=== PATIENT | male | born 1950 | race African-American/Black ===

== ENCOUNTER → 2016-04-05 | Day surgery (SDC) | payer MEDICARE ==
--- NOTE | 2016-04-03 05:43 | HP ---
PREOPERATIVE HISTORY AND PHYSICAL: DATE OF SURGERY: 04/06/16 DATE OF OFFICE VISIT: 03/30/16 ATTENDING SURGEON: Maine Casillas MD PROCEDURE: Right shoulder arthroscopic rotator cuff repair versus right rotator cuff repair, open arthroscopic debridement, and possible open subscapularis repair. CHIEF COMPLAINT: Right shoulder pain. HISTORY OF PRESENT ILLNESS: Mr. Harrison is a 66-year-old male who presented to the clinic for ongoing shoulder pain due to a rotator cuff tear. The patient has a history of prior right shoulder rotator cuff repair 15 to 20 years ago; however, has reinjured his shoulder and continues to have ongoing pain that has failed conservative measures. Therefore, he has agreed to undergo a right shoulder arthroscopic rotator cuff repair with Dr. Casillas on 03/11. PAST MEDICAL HISTORY: 1. Obstructive sleep apnea. 2. History of heart attack. 3. Diabetes mellitus, type 2. 4. Hypertension. 5. Obesity. 6. High cholesterol. PAST SURGICAL HISTORY: 1. Right knee replacement. 2. Right Achilles tendon repair. 3. Left foot transmetatarsal amputation. 4. Cardiac stent placement. 5. Bilateral rotator cuff repair. MEDICATIONS: 1. Carvedilol 12.5 mg 1 by mouth twice a day. 2. Ventolin inhaler. 3. Budesonide inhaler. 4. Furosemide 40 mg 1 by mouth every day as needed for leg swelling. 5. Oxycodone/acetaminophen 5/325 mg 1 by mouth every 6 hours as needed for pain. 6. Blood glucose test strips 3 times a day as directed. 7. Losartan potassium 25 mg 1 by mouth daily. 8. Hydralazine HCl 25 mg 1 by mouth 3 times a day. 9. Neurontin 400 mg 1 tab 3 times a day to 4 times a day daily. 10. Aspirin 81 mg 1 by mouth daily. 11. Simvastatin 20 mg 1 by mouth daily. 12. Lantus 100 units/mL, 500 units to 100 units as directed at bedtime beneath the skin. 13. Zolpidem tartrate 10 mg 1 tab by mouth every night as needed. 14. Omeprazole 20 mg daily. 15. Naproxen 500 mg. 16. Humalog KwikPen 100 units/mL. ALLERGIES: EFFEXOR. FAMILY HISTORY: Sister has hypertension. SOCIAL HISTORY: The patient is a former smoker, quit in 2011. He lives alone. He reports he drinks 8 cans of beer a week. He denies illegal drug use. REVIEW OF SYSTEMS: A 14-point review of systems was reviewed with the patient. Positive for edema, hypertension, numbness and tingling in the feet and the right arm, diabetes type 2, and history of DVT after knee replacement. Otherwise, negative or nonpertinent. PHYSICAL EXAMINATION GENERAL: A well-developed, overweight 66-year-old male, in no acute distress. VITAL SIGNS: Height 68, weight 320, pulse 60, respiratory rate 16, and BMI 48.7. HEENT: Normocephalic, atraumatic. PERRLA. NECK: Supple. Throat clear. PULMONARY: Lungs clear to auscultation bilaterally. No wheezing, rhonchi, or rales. CARDIO: Regular rate and rhythm, S1, S2. No murmurs, gallops, or rubs. No edema. ABDOMEN: Positive bowel sounds, soft, and nontender. NEURO: Alert and oriented x3. Cranial nerves grossly intact. Sensation is intact to light touch distally. MUSCULOSKELETAL: Right shoulder; skin is intact, no obvious deformity. Forward flexion to 80 degrees, adduction to 110 degrees, external rotation to 65 degrees, internal rotation to the lateral hip, +4 to 5 weakness to rotator cuff testing, and +2 radial pulse. Sensation intact to light touch distally. DIAGNOSTIC STUDIES: MRI revealed full-thickness tear of the supraspinatus and infraspinatus tendons of the right shoulder. IMPRESSION: Right shoulder full-thickness tear of the supraspinatus and infraspinatus tendons. PLAN: The patient is scheduled to undergo a right shoulder arthroscopic rotator cuff repair versus, arthroscopic debridement, possible open subscapularis repair with Dr. Casillas on 04/06/16. He will return to the office in 10 to 14 days postop for followup and suture removal. The patient's preop labs showed an elevated A1c around 9. Therefore, it was explained to the patient that his elevated A1c increases the risk of infection and complication. The patient did not want to delay surgery. He was told to keep his sugars under better control until surgery occurs. The patient was given a prescription for Percocet that was sent to his pharmacy for postoperative pain management. He was instructed to take a stool softener for prevention of constipation. He will be on Keflex for 4 to 5 days postoperatively and due to his history of DVT, Lovenox will be used for 10 days for DVT prophylaxis. The patient has been cleared by his general assembler installer and his primary care physician for surgery. HEATHER ANG [id number]/[facility] #: [id number] DUANE
--- NOTE | 2016-04-03 05:50 | HP ---
DICTATION ENDS ABRUPTLY FULLY REDICTATED PREOPERATIVE HISTORY AND PHYSICAL: DATE OF ADMISSION/SURGERY: 04/06/16 DATE OF OFFICE VISIT: 03/30/16 ATTENDING SURGEON: Dr. Casillas. PROCEDURE: Right shoulder arthroscopic rotator cuff repair versus rotator cuff open, arthroscopic debridement, possible open subscapularis repair. CHIEF COMPLAINT: Right shoulder pain. HISTORY OF PRESENT ILLNESS: Mr. Harrison is a 66-year-old male who presents to the clinic for followup of ongoing right shoulder pain. The patient has a history of a prior rotator cuff repair on the right shoulder 15-20 years ago. The patient has reinjured his shoulder and has retorn his rotator cuff, therefore has continued pain. The patient has failed conservative measures and therefore has agreed to undergo a right shoulder arthroscopic rotator cuff repair versus rotator cuff repair open, laparoscopic debridement and possible open subscapularis repair with Dr. Casillas on 04/06/16. PAST MEDICAL HISTORY: 1. Obstructive sleep apnea. 2. Hypertension. 3. Obesity. 4. High cholesterol. 5. Diabetes mellitus. 6. History of heart attack. PAST SURGICAL HISTORY: 1. Right knee replacement. 2. Right Achilles tendon repair. 3. Cardiac stent placement. 4. Left foot transmetatarsal amputation. 5. Bilateral rotator cuff repairs. MEDICATIONS: Please list: 1. Carvedilol 12.5 mg one by mouth twice a day. 2. Furosemide 40 mg one by mouth every day as needed for leg swelling. 3. Oxycodone/acetaminophen 5/325 to take one by mouth. (DICTATION ENDS HERE) HEATHER ANG [id number]/[facility] #: [id number] DUANE
[~2016-04-05] MED LIST: Atracurium* 10 MG/ML 10 ML VIAL ONE; Buffered Lidocaine 1% SYR 3ML* 3 ML/SYR SYRINGE INTRADERM ONE; Buffered Lidocaine 1% SYR 3ML* 3 ML/SYR SYRINGE ONE; Bupivacaine 0.25% SDV* 30 ML ONE; Famotidine IV* 10 MG/ML 2 ML (20 mg) IV ONE; Famotidine IV* 10 MG/ML 2 ML (20 mg) ONE; Insulin REGULAR(*) 1 UNITS UNIT ONE; Insulin REGULAR(*) 1 UNITS UNIT SUBCUT SCH; KETAMINE HCL* 50 MG/ML 10 ML VIAL ONE; Labetalol IV* 5 MG/ML 20 ML VIAL ONE; Lidocaine 2% MPF* 2 ML VIAL ONE; Lidocaine 2% PF* 10 ML AMP ONE; Metoprolol Tartrate IV* 1 MG/ML 5 ML VIAL ONE; Midazolam* 1 MG/ML 5 ML VIAL (5 MG) ONE; Morphine INJ* 10 MG/ML 1 ML CARPUJECT ONE; Morphine INJ* 2 MG/ML 1 ML CARPUJECT IV PRN; Ondansetron INJ* 2 MG/ML VIAL ONE; PROCHLORPERAZINE INJ 5 MG/ML 2 ML VIAL IV PRN; PROCHLORPERAZINE INJ 5 MG/ML 2 ML VIAL ONE; Propofol* 10 MG/ML 20 ML BTL IV PUSH ONE; ceFAZolin 1 GM in Dextrose (*) 1 GM/50 ML BAG IVPB ONE; ceFAZolin 2 GM PREMIX (*) 2 GM/50 ML BAG IVPB ONE; fentaNYL* 50 MCG/ML 2 ML VIAL (100 MCG VIAL) IV PRN; fentaNYL* 50 MCG/ML 5 ML VIAL (250 MCG VIAL) ONE; oxyCODONE/Acetamin 5/325 MG* TAB PO PRN
[2016-04-05 13:23] VITALS: BP 148/89
--- NOTE | 2016-04-05 22:31 | OP ---
DATE OF OPERATION: 04/05/16 [facility] DATE OF : 50 SURGEON: Maine Casillas MD WARPING MILL OPERATOR: HEATHER Holland. An billing and accounting staff assistant was needed for the entirety of the case to help with positioning, retraction, placement of anchors and throughout all portions of the case. ANESTHESIOLOGIST: Dr. Tinsley. ANESTHESIA: General with interscalene block. PRE-OP DIAGNOSIS: Right shoulder full thickness rotator cuff tear status post previous repair as well as biceps tendonitis. POST-OP DIAGNOSES: 1. Full thickness massive rotator cuff tear failed, status post previous repair. 2. Subacromial impingement. 3. Biceps tendonitis. OPERATIVE PROCEDURE: Right shoulder arthroscopy with: 1. Extensive glenohumeral debridement including biceps tenotomy. 2. Revision subacromial decompression with acromioplasty. 3. Double row rotator cuff repair for massive rotator cuff status post failed repair. IMPLANTS USED: Three Healicoils and 1 Multifix anchor by Rios and NephBalzo. COMPLICATIONS: None. ESTIMATED BLOOD LOSS: Minimal. INDICATIONS: Mariah Harrison is a 66-year-old male who has had persistent right shoulder pain. He has a previous history of a repair that was done by either Dr. Bruno or Dr. Wells that was done open. He says that it did okay for a while but then he started to develop a lot of pain in the last year, so it has got much much worse. He failed conservative management. He has an extensive medical history, underwent preoperative risk assessment by his primary care provider. He did have a hemoglobin A1C in December that was over 8. We did have an extensive discussion about him needing time control of his diabetes as this can affect the healing of his surgery. He also has a previous history of having a heart attack after his total knee replacement. We will watch him very closely after surgery. He understands the risks and benefits of surgery which include but are not limited to bleeding, infection, damage to nerves, vessels or surrounding structures, wound nonhealing, persistent pain, need for further surgery, failure of the repair, risks of anesthesia, risk of stroke, heart attack, , risks of DVT, stiffness, persistent pain and complete relief of symptoms. He has elected to proceed. DESCRIPTION OF PROCEDURE: The patient was greeted in the preoperative area by the attending surgeon. Correct extremity was marked. The Anesthesia team then did a block in the preoperative anesthesia area, which he tolerated without difficulty. He was then brought directly to the operating room and left on the stretcher. He then underwent endotracheal intubation, which he tolerated without difficulty. The patient was then transferred to the operative table after he was asleep and he was placed in the left lateral decubitus position and an axillary roll was placed. All bony prominences were padded. He was supported with a peg board. The right arm was draped unsterile from the traction frame with 15 pounds of traction. The right arm was prepped and draped in the usual sterile fashion with chlorhexidine soap and then a final prep with ChloraPrep. After appropriate surgical pause indicating site, side, procedure, administration of antibiotics, the standard posterolateral portal was made sharply with the 11 blade. The scope was introduced into the joint. The joint was examined and there were grade 0 to 1 changes of the glenoid and the humeral head, the inferior recess was intact. There was a full thickness tear of the supraspinatus tendon extending into the infraspinatus tendon. Biceps was subluxed anteriorly. The superior, anterior and posterior labrum had unstable fraying. The anterior portal was then made in an outside-in fashion. The shaver was brought in to debride the unstable flaps of the superior, posterior and anterior labrum. The biceps was taken through range of motion and then tenotomized. There was abundant scar and soft tissue anteriorly which was then carefully debrided back using the shaver and the electrocautery device when then exposed the subscapularis which was found to be intact. Once the debridement was complete, attention was directed to the subacromial space. The scope was repositioned in the subacromial space. The lateral portal was made in an outside-in fashion. The abundant bursa was carefully removed using a shaver and an electrocautery device. A previous subacromial decompression had been done but there was a large downward sloping spur anterolaterally that was present. This was fully exposed using electrocautery device. The CA ligament was peeled back. The undersurface of the acromion was skeletonized. A 4-0 bipin was then used to complete the acromioplasty which was revised. All loose debris was removed from the joint and then attention was directed to the rotator cuff. The rotator cuff had an irregular full thickness tear from the previous anchor site which was visible but it also extended into the anterior portion of the infraspinatus tendon. The tendon was debrided back to a stable layer. It was then carefully mobilized. The greater tuberosity was fully exposed and this was then prepared in the usual fashion with a rasp, as well as the bipin to incorporate to help stimulate healing as well as the shaver and electrocautery device. Once this was done, 3 anchors were placed in the medial row. These were Healicoil anchors. They were passed through the tissues in a horizontal mattress configuration. These were then tied down and four strands were chosen and then placed into a lateral footprint anchor. This allowed for compression of the cuff as best as possible as well as the double layer fixation. The cuff was visualized and found to be intact and restored to the footprint. All loose debris and fluid were removed from the joint. Final images were obtained. The portals were closed with 3-0 nylon. Sterile dressings were applied. A Cryo/Cuff as well as an UltraSling were applied. He was then awoken from anesthesia and transferred to PACU in stable condition. POSTOPERATIVE PLAN: His glucoses will be monitored closely. He will be nonweightbearing. He will be in a sling for 6 weeks. We will allow to come out with elbow, hand, wrist range of motion as well as pendulum exercises. He will be discharged on pain medications. He will be on lovenox for prior history of DVT for at least 2 weeks. CC: BREE, [place] [id number]/[facility] #: [id number] DUANE
== END | disposition home or self-care (01) ==
LOC: OR 05:37
PROVIDERS: ATTEND Orthopaedic Surgery
DX: M75.121 Complete rotator cuff tear or rupture of right shoulder, not specified as traumatic (principal); M75.41 Impingement syndrome of right shoulder; M75.21 Bicipital tendinitis, right shoulder; G47.33 Obstructive sleep apnea (adult) (pediatric); I25.2 Old myocardial infarction; E11.8 Type 2 diabetes mellitus with unspecified complications; Z79.4 Long term (current) use of insulin; I10 Essential (primary) hypertension
CPT/HCPCS: 36415; 84484; 93005; C1713; J0690; J0780; J2001; J2250; J2270; J2405; J2704; J3010; J3490

== ENCOUNTER 2016-05-10 22:34 | Emergency (ER) | payer MEDICARE ==
[2016-05-10] MEDS ORDERED: Aspirin Low Dose CHEW TAB* 81 MG PO ONE (22:51)
[2016-05-10 23:42] LABS: Hematocrit 35 % (42-52); Mean Corpuscular HGB Conc 31 g/dl (31-36); Mean Corpuscular Hemoglobin 24 pg (27-31); Mean Corpuscular Volume 76 fL (80-94); Mean Platelet Volume 9 um3 (7.4-10.4); Red Blood Count 4.61 10^6/ul (4.0-5.4); Red Cell Distribution Width 14 % (10.5-15); White Blood Count 12.1 10^3/ul (3.5-10.8)
[2016-05-10 23:48] LABS: Albumin 3.6 g/dL (3.2-5.2); Calcium 8.7 mg/dL (8.6-10.3); EGFR African American 60.2 (>60); EGFR Non-African American 46.8 (>60); Globulin 3.3 g/dL (2-4); Magnesium 1.7 mg/dL (1.9-2.7); Potassium 3.6 mmol/L (3.5-5.0); Total Bilirubin 0.3 mg/dL (0.2-1.0); Total Protein 6.9 g/dL (6.4-8.9)
[2016-05-10 23:50] LABS: Troponin I 0.01 ng/mL (<0.04)
--- NOTE | 2016-05-10 23:53 | ED ---
Edmund Mccain Billy, scribed for Angel Armas MD on 05/10/16 at 2353 . HPI Chest Pain - HPI Summary HPI Summary: Patient is a 66 year-old male coming to [facility] presenting with constant left anterior chest pain since yesterday. He also reports associated SOB and wheezing. Symptoms are worse with movement and deep breaths. Patient had right shoulder surgery with Dr. Casillas 3 weeks ago. Former smoker, quit 4 years ago. - History of Current Complaint Chief Complaint: EDChestPainROMI Time Seen by Provider: 05/10/16 22:48 Hx Obtained From: Patient Onset/Duration: Started Hours Ago, Still Present Timing: Constant Initial Severity: Moderate Current Severity: Moderate Chest Pain Location: Left Anterior Chest Pain Radiates: No Aggravating Factor(s): Movement, Deep Breaths Alleviating Factor(s): Nothing Associated Signs and Symptoms: Positive: Shortness of Breath, Other: - wheezing - Allergy/Home Medications Allergies/Adverse Reactions: Allergies Allergy/AdvReac Type Severity Reaction Status Date / Time Venlafaxine [From Effexor] Allergy ALEXANDRU, Verified 04/05/16 06:27 SWETTING PMH/Surg Hx/FS Hx/Imm Hx Endocrine/Hematology History: Reports: Hx Anticoagulant Therapy - coumadin, Hx Diabetes - type 2, ON INULINE Denies: Hx Thyroid Disease Cardiovascular History: Reports: Hx Angina, Hx Coronary Artery Disease - STENT, Hx Hypercholesterolemia, Hx Hypertension - ON MEDS, Hx Myocardial Infarction, Other Cardiovascular Problems/Disorders - CAD/OBESITY/IDDM II Denies: Hx Pacemaker/ICD, Hx Valvular Heart Disease Respiratory History: Reports: Hx Sleep Apnea - USES AMBIEM NIGHTLY Denies: Hx Asthma, Hx Chronic Obstructive Pulmonary Disease (COPD) GI History: Reports: Hx Gastroesophageal Reflux Disease - ON DAILY MEDS, Other GI Disorders - HISTORY OF PANCREATITIS- GALLBLADDER REMOVED-?2010 History: Reports: Other Problems/Disorders - contrast induce nephropathy Denies: Hx Renal Disease Musculoskeletal History: Reports: Hx Arthritis - BOTH HANDS, SHOULDERS Sensory History: Reports: Hx Contacts or Glasses - GLASSES Denies: Hx Hearing Aid Opthamlomology History: Reports: Hx Contacts or Glasses - GLASSES Neurological History: Reports: Hx Nerve Disease - neuropathy Denies: Hx Dementia, Hx Seizures Psychiatric History: Denies: Hx Panic Disorder, Hx Suicide Attempt, Hx Substance Abuse - Surgical History Surgery Procedure, Year, and Place: GALL BLADDER 2010 [facility] [place]. CARDIAC STENT PLACEMENT-[facility] [place] 2010. LEFT FOOT PARTIAL AMPUTATION [facility] [place]. RIGHT ACHILLES TENDON REPAIR [facility] [place]. R total knee replacement: 2011 [facility] [place]. PINS IN BOTH LEGS FOR FRACTURES- AGE 11. LEFT AND RIGHT ROTATOR TEAR REPAIRS [facility] Hx Anesthesia Reactions: No - Immunization History Date of Tetanus Vaccine: >10 yrs Date of Influenza Vaccine: Fall 2012 Infectious Disease History: Reports: Hx Hepatitis - HX OF Dx 01/08 Hep C, TOOK FULL COURES OF MEDS, STATES CLEARED Denies: Hx Clostridium Difficile, Hx Human Immunodeficiency Virus (HIV), Hx Shingles, Hx Tuberculosis, Traveled Outside the [place] in Last 30 Days - Family History Known Family History: Negative: Cardiac Disease Family History: No FHx of Malignant Hyperthermia. No FHx of Anesthesia Reaction - Social History Alcohol Use: Weekly Alcohol Amount: 6-8 CANS/BEER WEEK Substance Use Type: Reports: None Hx Tobacco Use: Yes Smoking Status (MU): Former Smoker Type: Cigarettes Amount Used/How Often: 1/2 PPD 40 YRS Have You Smoked in the Last Year: No Review of Systems Positive: Chest Pain Positive: Shortness Of Breath, Other - wheezing All Other Systems Reviewed And Are Negative: Yes Physical Exam Triage Information Reviewed: Yes Vital Signs On Initial Exam: Initial Vitals Resp BP 16 180/76 05/10/16 22:51 05/10/16 22:51 Vital Signs Reviewed: Yes Appearance: Positive: Pain Distress - mild discomfort, Obese Skin: Positive: Warm Head/Face: Positive: Normal Head/Face Inspection Eyes: Positive: GADIEL ENT: Positive: Hearing grossly normal Neck: Positive: Supple Respiratory/Lung Sounds: Positive: Clear to Auscultation, Breath Sounds Present Cardiovascular: Positive: RRR Abdomen Description: Positive: Nontender, Soft Bowel Sounds: Positive: Present Musculoskeletal: Positive: Strength/ROM Intact Neurological: Positive: Normal Gait - [place] Coma Scale Coma Scale Total: 15 Diagnostics - Vital Signs Vital Signs Pulse Resp BP Pulse Ox 05/10/16 23:00 81 12 165/71 95 05/10/16 22:51 16 180/76 - Laboratory Lab Results: Lab Results 05/10/16 05/10/16 05/10/16 Range/Units 23:25 23:25 23:25 WBC 12.1 H (3.5-10.8) 10^3/ul RBC 4.61 (4.0-5.4) 10^6/ul Hgb 11.0 L (14.0-18.0) g/dl Hct 35 L (42-52) % MCV 76 L (80-94) fL MCH 24 L (27-31) pg MCHC 31 (31-36) g/dl RDW 14 (10.5-15) % Plt Count 192 (150-450) 10^3/ul MPV 9 (7.4-10.4) um3 Neut % (Auto) 65.7 (38-83) % Lymph % (Auto) 20.5 L (25-47) % [place] % (Auto) 8.4 (1-9) % Eos % (Auto) 3.5 (0-6) % Baso % (Auto) 1.9 (0-2) % Absolute Neuts (auto) 8.0 H (1.5-7.7) 10^3/ul Absolute Lymphs (auto) 2.5 (1.0-4.8) 10^3/ul Absolute Monos (auto) 1.0 H (0-0.8) 10^3/ul Absolute Eos (auto) 0.4 (0-0.6) 10^3/ul Absolute Basos (auto) 0.2 (0-0.2) 10^3/ul Absolute Nucleated RBC 0.01 10^3/ul Nucleated RBC % 0.1 INR (Anticoag Therapy) 0.99 (0.89-1.11) D-Dimer, Quantitative 514 H (Less Than 230) ng/mL Sodium 136 (133-145) mmol/L Potassium 3.6 (3.5-5.0) mmol/L Chloride 103 (101-111) mmol/L Carbon Dioxide 26 (22-32) mmol/L Anion Gap 7 (2-11) mmol/L BUN 27 H (6-24) mg/dL Creatinine 1.50 H (0.67-1.17) mg/dL Est GFR ( Amer) 60.2 (>60) Est GFR (Non-Af Amer) 46.8 (>60) BUN/Creatinine Ratio 18.0 (8-20) Glucose 76 (70-100) mg/dL Lactic Acid (0.5-2.0) mmol/L Calcium 8.7 (8.6-10.3) mg/dL Magnesium 1.7 L (1.9-2.7) mg/dL Total Bilirubin 0.30 (0.2-1.0) mg/dL AST 17 (13-39) U/L ALT 8 (7-52) U/L Alkaline Phosphatase 61 (34-104) U/L Troponin I 0.01 (<0.04) ng/mL Total Protein 6.9 (6.4-8.9) g/dL Albumin 3.6 (3.2-5.2) g/dL Globulin 3.3 (2-4) g/dL Albumin/Globulin Ratio 1.1 (1-3) 05/10/16 Range/Units 23:25 WBC (3.5-10.8) 10^3/ul RBC (4.0-5.4) 10^6/ul Hgb (14.0-18.0) g/dl Hct (42-52) % MCV (80-94) fL MCH (27-31) pg MCHC (31-36) g/dl RDW (10.5-15) % Plt Count (150-450) 10^3/ul MPV (7.4-10.4) um3 Neut % (Auto) (38-83) % Lymph % (Auto) (25-47) % [place] % (Auto) (1-9) % Eos % (Auto) (0-6) % Baso % (Auto) (0-2) % Absolute Neuts (auto) (1.5-7.7) 10^3/ul Absolute Lymphs (auto) (1.0-4.8) 10^3/ul Absolute Monos (auto) (0-0.8) 10^3/ul Absolute Eos (auto) (0-0.6) 10^3/ul Absolute Basos (auto) (0-0.2) 10^3/ul Absolute Nucleated RBC 10^3/ul Nucleated RBC % INR (Anticoag Therapy) (0.89-1.11) D-Dimer, Quantitative (Less Than 230) ng/mL Sodium (133-145) mmol/L Potassium (3.5-5.0) mmol/L Chloride (101-111) mmol/L Carbon Dioxide (22-32) mmol/L Anion Gap (2-11) mmol/L BUN (6-24) mg/dL Creatinine (0.67-1.17) mg/dL Est GFR ( Amer) (>60) Est GFR (Non-Af Amer) (>60) BUN/Creatinine Ratio (8-20) Glucose (70-100) mg/dL Lactic Acid 0.6 (0.5-2.0) mmol/L Calcium (8.6-10.3) mg/dL Magnesium (1.9-2.7) mg/dL Total Bilirubin (0.2-1.0) mg/dL AST (13-39) U/L ALT (7-52) U/L Alkaline Phosphatase (34-104) U/L Troponin I (<0.04) ng/mL Total Protein (6.4-8.9) g/dL Albumin (3.2-5.2) g/dL Globulin (2-4) g/dL Albumin/Globulin Ratio (1-3) Result Diagrams: 05/10/16 23:25 05/10/16 23:25 Lab Statement: Any lab studies that have been ordered have been reviewed, and results considered in the medical decision making process. - Radiology CXR Xray Interpretation: No Acute Changes Radiology Interpretation Completed By: ED Physician - CT CTA chest CT Interpretation Completed By: Radiologist - No evidence of a PE, thoracic aortic aneurysm, dissection, or pneumonic process. Mild bilateral dependent subsegmental atelectasis. Mild cardiomegaly. Coronary artery calcifications. No pneumothorax or pleural effusion. Status post cholecystectomy. Small right renal cyst. Thoracic spondylosis. - EKG 223 EKG Interpretation: NSR 83 bpm, no ST elevation Re-Evaluation - Re-Evaluation First Eval Change: Improved Chest Pain Course/Dx - Diagnoses Provider Diagnoses: Chest pain - Critical Care Time Critical Care Time: 30-74 min Discharge - Discharge Plan Condition: Stable Disposition: HOME Prescriptions: Naproxen TAB* [Naprosyn TAB*] 500 mg PO BID #20 tab Patient Education Materials: Chest Pain (ED) Referrals: Fred Hoffman MD [Primary Care Provider] - The documentation as recorded by the Edmund castano Billy accurately reflects the service I personally performed and the decisions made by , Angel Armas MD.
[2016-05-11] MEDS ORDERED: Iodixanol* (CONTRAST) 320 MG/ML 100 ML SDV IV ONE (00:27)
[2016-05-11 01:46] VITALS: BP 179/85
--- NOTE | 2016-05-11 07:41 | RAD ---
INDICATION: Chest pain and shortness of breath. COMPARISON: Correlation is made with prior study from June 24, 2015. TECHNIQUE: Dual-energy PA and lateral views of the chest were obtained. FINDINGS: The heart is within normal limits in size. Mediastinal and hilar contours appear within normal limits. The lungs are clear. No pleural effusion is present. IMPRESSION: NO EVIDENCE FOR ACTIVE CARDIOPULMONARY DISEASE.
--- NOTE | 2016-05-11 07:53 | RAD ---
INDICATION: Shortness of breath, elevated d-dimer. COMPARISON: Comparison is made with a prior chest x-ray study from May 10, [address] angiogram of the chest from January 10, 2014. TECHNIQUE: A CT angiogram of the chest was performed with intravenous following intravenous injection of 95 ml of Visipaque 320 nonionic contrast. Contiguous axial sections were obtained from the lung apices through the lung bases. Images were reconstructed in the coronal and sagittal planes. FINDINGS: There is relatively homogeneous opacification of the pulmonary arteries. No intraluminal filling defect or pulmonary embolism is seen. The heart appears to be within normal limits in size. No pericardial effusion is present. Note is made of coronary artery calcifications. The descending thoracic aorta is mildly ectatic with mild calcific and soft plaque present. There is no evidence for aortic dissection. No significant enlarged mediastinal or hilar lymph nodes are seen. There is mild dependent bilateral lower lobe subsegmental atelectasis. The lungs are otherwise clear. No pneumothorax or pleural effusion is seen. Images of the upper abdomen demonstrate moderate hepatomegaly and hepatic steatosis. The patient is status post cholecystectomy. There is a 2.2 cm right renal cyst which is unchanged from the prior study. No significant focal osseous abnormality is seen. IMPRESSION: NO EVIDENCE FOR PULMONARY EMBOLISM.
== END 2016-05-11 01:46 | disposition home or self-care (01) ==
LOC: ED 22:34
DX: R06.02 Shortness of breath (principal); Z87.891 Personal history of nicotine dependence; R07.9 Chest pain, unspecified
CPT/HCPCS: 36415; 71020; 71275; 80053; 83605; 83735; 84484; 85025; 85379; 85610; 93005; 99283; A9270-GY; Q9967

== ENCOUNTER 2016-11-11 21:13 | Emergency (ER) | payer MEDICARE ==
--- NOTE | 2016-11-11 21:21 | UC ---
Respiratory Complaint HPI - HPI Summary HPI Summary: 66 YEAR OLD MALE PRESENTS WITH SHORTNESS OF BREATH, LIGHT HEADED AND LEFT SIDED CHEST PAIN. I WILL SEND HIM TO THE ER BY EMS. - History of Current Complaint Stated Complaint: LIGHT-HEADED,DIFFICULTY BREATHING Time Seen by Provider: 11/11/16 21:18 - Allergies/Home Medications Allergies/Adverse Reactions: Allergies Allergy/AdvReac Type Severity Reaction Status Date / Time Venlafaxine [From Effexor] Allergy ALEXANDRU, Verified 11/11/16 21:29 SWETTING PMH/Surg Hx/FS Hx/Imm Hx Previously Healthy: Yes Other History Of: Anticoagulant Therapy - coumadin - Surgical History Surgical History: Yes Surgery Procedure, Year, and Place: GALL BLADDER 2010 [facility]. [place] [place] LEFT FOOT PARTIAL AMPUTATION [facility]. RIGHT ACHILLES TENDON REPAIR [facility]. R total knee replacement: 2011 [facility]. PINS IN BOTH LEGS FOR FRACTURES- AGE 11. LEFT AND RIGHT ROTATOR TEAR REPAIRS [facility] - Family History Known Family History: Positive: Unknown Negative: Cardiac Disease Family History: No FHx of Malignant Hyperthermia. No FHx of Anesthesia Reaction - Social History Alcohol Use: Weekly Alcohol Amount: 6-8 CANS/BEER WEEK Substance Use Type: None Smoking Status (MU): Former Smoker Type: Cigarettes Amount Used/How Often: 1/2 PPD 40 YRS Have You Smoked in the Last Year: No When Did the Patient Quit Smoking/Using Tobacco: 2009 - Immunization History Most Recent Influenza Vaccination: 2012 Most Recent Tetanus Shot: unknown Most Recent Pneumonia Vaccination: unsure Review of Systems Constitutional: Fatigue Skin: Negative Eyes: Negative ENT: Negative Respiratory: Negative Cardiovascular: Chest Pain Gastrointestinal: Negative Genitourinary: Negative Motor: Negative Neurovascular: Negative, Other - DIZZINESS Musculoskeletal: Negative Neurological: Headache Psychological: Negative All Other Systems Reviewed And Are Negative: Yes Physical Exam Triage Information Reviewed: Yes Appearance: Ill-Appearing Eye Exam: Normal ENT Exam: Normal Dental Exam: Normal Neck exam: Normal Neck: Positive: 1 Respiratory Exam: Normal Respiratory: Positive: Respiratory distress, Decreased breath sounds, Rhonchi, Wheezing Cardiovascular Exam: Normal Abdominal Exam: Normal Musculoskeletal Exam: Normal Neurological Exam: Normal Psychological Exam: Normal Skin Exam: Normal Respiratory Course/Dx - Differential Dx/Diagnosis Provider Diagnoses: SHORTNESS OF BREATH. LEFT SIDED CHEST PAIN Discharge - Discharge Plan Condition: Guarded Disposition: TRANS [facility] Referrals: Fred Hoffman MD [Primary Care Provider] -
[2016-11-11 21:46] VITALS: BP 146/67
== END 2016-11-11 21:45 | disposition short-term general hospital (02) ==
LOC: UCEAST 21:13
DX: R06.02 Shortness of breath (principal); R07.89 Other chest pain; R53.83 Other fatigue; Z79.01 Long term (current) use of anticoagulants; Z90.49 Acquired absence of other specified parts of digestive tract; Z95.5 Presence of coronary angioplasty implant and graft; Z89.432 Acquired absence of left foot; Z87.891 Personal history of nicotine dependence
CPT/HCPCS: 93005; 99213; G0463

== ENCOUNTER 2016-11-11 22:03 | Emergency (ER) | payer MEDICARE ==
[2016-11-11] MEDS ORDERED: Albuterol/Ipratropium NEB.SOL* Albuterol 2.5 MG/Ipratropium 0.5 MG 3 ML INH ONE (22:31)
[2016-11-11] MEDS ORDERED: Albuterol/Ipratropium NEB.SOL* Albuterol 2.5 MG/Ipratropium 0.5 MG 3 ML ONE (22:34)
[2016-11-11] MEDS ORDERED: methylPREDNISolone 125 MG* 2 ML VIAL IV ONE (22:39)
[2016-11-11 23:11] LABS: Hematocrit 34 % (42-52); Hemoglobin 10.9 g/dl (14.0-18.0); Mean Corpuscular HGB Conc 32 g/dl (31-36); Mean Corpuscular Hemoglobin 25 pg (27-31); Mean Corpuscular Volume 76 fL (80-94); Mean Platelet Volume 9 um3 (7.4-10.4); Red Blood Count 4.46 10^6/ul (4.0-5.4); Red Cell Distribution Width 14 % (10.5-15); White Blood Count 9.4 10^3/ul (3.5-10.8)
[2016-11-11 23:23] LABS: Albumin 3.6 g/dL (3.2-5.2); BUN/Creatinine Ratio 14.9 (8-20); Calcium 8.4 mg/dL (8.6-10.3); EGFR African American 48.5 (>60); EGFR Non-African American 37.7 (>60); Globulin 3.3 g/dL (2-4); Total Bilirubin 0.3 mg/dL (0.2-1.0); Total Protein 6.9 g/dL (6.4-8.9)
[2016-11-12] MEDS ORDERED: Azithromycin TAB* 250 MG PO ONE (00:43)
[2016-11-12 01:09] VITALS: BP 161/76
--- NOTE | 2016-11-12 04:02 | ED ---
Yakov Mccain SooYoung, scribed for Haseeb Adan MD on 11/11/16 at 2235 . Shortness of Breath - HPI Summary HPI Summary: A 66 y/o M [place]ED [place] [facility] [place] with sudden onset SOB for past 4 to 5 hours. Associated sx: wheezing, mild throat pain. Denies CP, fever, chills, rhinorrhea, calf pain. Pt denies PMHx of COPD, asthma, CHF. Former smoker, quit 4 years ago. Pt uses an inhaler. No home O2. Pt was given breathing [place] [facility] [place] en route to ED. No surgery, no recent travel. - History of Current Complaint Chief Complaint: EDShortnessOfBreath Hx Obtained From: Patient Onset/Duration: Sudden Onset, Lasting Hours, Still Present Timing: Constant Current Severity: Moderate Dyspnea At: Rest Associated Signs & Symptoms: Wheezing Related History: Obesity - Allergy/Home Medications Allergies/Adverse Reactions: Allergies Allergy/AdvReac Type Severity Reaction Status Date / Time Venlafaxine [From Effexor] Allergy ALEXANDRU, Verified 11/11/16 21:29 SWETTING PMH/Surg Hx/FS Hx/Imm Hx Previously Healthy: No Endocrine/Hematology History: Reports: Hx Anticoagulant Therapy - coumadin, Hx Diabetes - type 2, ON INULINE Denies: Hx Thyroid Disease Cardiovascular History: Reports: Hx Angina, Hx Coronary Artery Disease - STENT, Hx Hypercholesterolemia, Hx Hypertension - ON MEDS, Hx Myocardial Infarction, Other Cardiovascular Problems/Disorders - CAD/OBESITY/IDDM II Denies: Hx Pacemaker/ICD, Hx Valvular Heart Disease Respiratory History: Reports: Hx Sleep Apnea - USES AMBIEM NIGHTLY Denies: Hx Asthma, Hx Chronic Obstructive Pulmonary Disease (COPD) GI History: Reports: Hx Gastroesophageal Reflux Disease - ON DAILY MEDS, Other GI Disorders - HISTORY OF PANCREATITIS- GALLBLADDER REMOVED-?2010 History: Reports: Other Problems/Disorders - contrast induce nephropathy Denies: Hx Renal Disease Musculoskeletal History: Reports: Hx Arthritis - BOTH HANDS, SHOULDERS Sensory History: Reports: Hx Contacts or Glasses - GLASSES Denies: Hx Hearing Aid Opthamlomology History: Reports: Hx Contacts or Glasses - GLASSES Neurological History: Reports: Hx Nerve Disease - neuropathy Denies: Hx Dementia, Hx Seizures Psychiatric History: Denies: Hx Panic Disorder, Hx Suicide Attempt, Hx Substance Abuse - Surgical History Surgery Procedure, Year, and Place: GALL BLADDER 2010 [facility] [place]. [place] ST[place] PLACEMENT[place] [place]. LEFT FOOT PARTIAL AMPUTATION [facility] [place]. RIGHT ACHILLES TENDON REPAIR [facility] [place]. R total knee replacement: 2011 [facility] [place]. PINS IN BOTH LEGS FOR FRACTURES- AGE 11. LEFT AND RIGHT ROTATOR TEAR REPAIRS [facility] [place] Hx Anesthesia Reactions: No - Immunization History Date of Tetanus Vaccine: >10 yrs Date of Influenza Vaccine: Fall 2012 Infectious Disease History: Reports: Hx Hepatitis - HX OF Dx 01/08 Hep C, TOOK FULL COURES OF MEDS, STATES CLEARED Denies: Hx Clostridium Difficile, Hx Human Immunodeficiency Virus (HIV), Hx Shingles, Hx Tuberculosis, Traveled Outside the [place] in Last 30 Days - Family History Known Family History: Negative: Cardiac Disease Family History: No FHx of Malignant Hyperthermia. No FHx of Anesthesia Reaction - Social History Occupation: Retired Lives: Alone Alcohol Use: Weekly Alcohol Amount: 6-8 CANS/BEER WEEK Hx Substance Use: No Substance Use Type: Reports: None Hx Tobacco Use: Yes Smoking Status (MU): Former Smoker Type: Cigarettes Amount Used/How Often: 1/2 PPD 40 YRS Have You Smoked in the Last Year: No Review of Systems Negative: Fever, Chills Positive: Other - pos: mild throat pain. Negative: Nasal Discharge Negative: Chest Pain Positive: Shortness Of Breath, Other - pos: wheezing Negative: Other - neg: calf pain All Other Systems Reviewed And Are Negative: Yes Physical Exam - Summary Physical Exam Summary: The patient is well-nourished in no acute distress and in no acute pain. The skin is warm and dry and skin color reflects adequate perfusion. HEENT: The head is normocephalic and atraumatic. The pupils are equal and reactive. The conjunctivae are clear and without drainage. Nares are patent and without drainage. Mouth reveals moist mucous membranes. Posterior pharynx has erythema and post nasal drip. Patent jugular reflex. The external ears are intact. The ear canals are patent and without drainage. The tympanic membranes are intact. Neck is supple with full range of motion and non-tender. There are no carotid bruits. There is no neck vein distension. Respiratory: Chest is non-tender. Diffuse wheezing, L worse than R. No stridor. No retractions noted. Cardiovascular: Hear is regular rate and rhythm. There is no murmur or rub auscultated. There is no peripheral edema and pulses are symmetrical and equal. Abdomen: The abdomen is soft, obese and non-tender. There are normal bowel sounds heard in all four quadrants and there is no organomegaly palpated. Musculoskeletal: There is no back pain noted. Extremities are non-tender with full range of motion. Capillary refill is 3 seconds. Pitting edema in LE. Neurological: Patient is alert and oriented to person, place and time. The patient has symmetrical motor strength in all four extremities. Cranial nerves are grossly intact. Deep tendon reflexes are symmetrical and equal in all four extremities. Psychiatric: The patient has an appropriate affect and does not exhibit any anxiety or depression. Triage Information Reviewed: Yes Vital Signs On Initial Exam: Initial Vitals Temp Pulse Resp BP Pulse Ox 98.8 F 80 18 156/79 95 11/11/16 22:14 11/11/16 22:14 11/11/16 22:14 11/11/16 22:14 11/11/16 22:14 Vital Signs Reviewed: Yes Diagnostics - Vital Signs Vital Signs Temp Pulse Resp BP Pulse Ox 11/11/16 22:14 98.8 F 80 18 156/79 95 - Laboratory Lab Results: Lab Results 11/11/16 11/11/16 11/11/16 Range/Units 21:35 21:35 21:35 WBC 9.4 (3.5-10.8) 10^3/ul RBC 4.46 (4.0-5.4) 10^6/ul Hgb 10.9 L (14.0-18.0) g/dl Hct 34 L (42-52) % MCV 76 L (80-94) fL MCH 25 L (27-31) pg MCHC 32 (31-36) g/dl RDW 14 (10.5-15) % Plt Count 209 (150-450) 10^3/ul MPV 9 (7.4-10.4) um3 Neut % (Auto) 57.9 (38-83) % Lymph % (Auto) 27.2 (25-47) % [place] % (Auto) 9.6 H (1-9) % Eos % (Auto) 4.1 (0-6) % Baso % (Auto) 1.2 (0-2) % Absolute Neuts (auto) 5.4 (1.5-7.7) 10^3/ul Absolute Lymphs (auto) 2.6 (1.0-4.8) 10^3/ul Absolute Monos (auto) 0.9 H (0-0.8) 10^3/ul Absolute Eos (auto) 0.4 (0-0.6) 10^3/ul Absolute Basos (auto) 0.1 (0-0.2) 10^3/ul Absolute Nucleated RBC 0.01 10^3/ul Nucleated RBC % 0.1 INR (Anticoag Therapy) 0.98 (0.89-1.11) Sodium 137 (133-145) mmol/L Potassium 4.0 (3.5-5.0) mmol/L Chloride 103 (101-111) mmol/L Carbon Dioxide 26 (22-32) mmol/L Anion Gap 8 (2-11) mmol/L BUN 27 H (6-24) mg/dL Creatinine 1.81 H (0.67-1.17) mg/dL Est GFR ( Amer) 48.5 (>60) Est GFR (Non-Af Amer) 37.7 (>60) BUN/Creatinine Ratio 14.9 (8-20) Glucose 82 (70-100) mg/dL Lactic Acid (0.5-2.0) mmol/L Calcium 8.4 L (8.6-10.3) mg/dL Total Bilirubin 0.30 (0.2-1.0) mg/dL AST 15 (13-39) U/L ALT 13 (7-52) U/L Alkaline Phosphatase 67 (34-104) U/L Troponin I 0.00 (<0.04) ng/mL B-Natriuretic Peptide ( - 100) pg/mL Total Protein 6.9 (6.4-8.9) g/dL Albumin 3.6 (3.2-5.2) g/dL Globulin 3.3 (2-4) g/dL Albumin/Globulin Ratio 1.1 (1-3) 11/11/16 11/11/16 Range/Units 21:35 21:35 WBC (3.5-10.8) 10^3/ul RBC (4.0-5.4) 10^6/ul Hgb (14.0-18.0) g/dl Hct (42-52) % MCV (80-94) fL MCH (27-31) pg MCHC (31-36) g/dl RDW (10.5-15) % Plt Count (150-450) 10^3/ul MPV (7.4-10.4) um3 Neut % (Auto) (38-83) % Lymph % (Auto) (25-47) % [place] % (Auto) (1-9) % Eos % (Auto) (0-6) % Baso % (Auto) (0-2) % Absolute Neuts (auto) (1.5-7.7) 10^3/ul Absolute Lymphs (auto) (1.0-4.8) 10^3/ul Absolute Monos (auto) (0-0.8) 10^3/ul Absolute Eos (auto) (0-0.6) 10^3/ul Absolute Basos (auto) (0-0.2) 10^3/ul Absolute Nucleated RBC 10^3/ul Nucleated RBC % INR (Anticoag Therapy) (0.89-1.11) Sodium (133-145) mmol/L Potassium (3.5-5.0) mmol/L Chloride (101-111) mmol/L Carbon Dioxide (22-32) mmol/L Anion Gap (2-11) mmol/L BUN (6-24) mg/dL Creatinine (0.67-1.17) mg/dL Est GFR ( Amer) (>60) Est GFR (Non-Af Amer) (>60) BUN/Creatinine Ratio (8-20) Glucose (70-100) mg/dL Lactic Acid 1.2 (0.5-2.0) mmol/L Calcium (8.6-10.3) mg/dL Total Bilirubin (0.2-1.0) mg/dL AST (13-39) U/L ALT (7-52) U/L Alkaline Phosphatase (34-104) U/L Troponin I (<0.04) ng/mL B-Natriuretic Peptide 38 ( - 100) pg/mL Total Protein (6.4-8.9) g/dL Albumin (3.2-5.2) g/dL Globulin (2-4) g/dL Albumin/Globulin Ratio (1-3) Result Diagrams: 11/11/16 21:35 11/11/16 21:35 Lab Statement: Any lab studies that have been ordered have been reviewed, and results considered in the medical decision making process. - Radiology CXR Xray Interpretation: Positive (See Comments) - Cardiomegaly. No PNA. No CHF. Radiology Interpretation Completed By: ED Physician Re-Evaluation - Re-Evaluation 1 Re-Evaluation Time: 00:30 Change: Improved Comment: Pt feeling better after neb treatment, wants to go home. Course/Dx - Course Course Of Treatment: Pt is a 66 y/o obese M BIBA [place] [facility] [place] ED with sudden onset SOB for past 4-5 hours. Associated sx: wheezing, mild throat pain. Denies CP, fever, chills, rhinorrhea, calf pain. Pt denies PMHx of COPD, asthma, CHF. Former smoker, quit 4 years ago. Pt uses an inhaler. No home O2. Pt was given breathing treatment [place] [facility] [place] en route to ED. No surgery, no recent travel. Pt given Solumedrol, Duoneb in ED. Bloodwork results are without significant abnormalities, except shows anemia, but is in line with his prev values. CXR shows cardiomegaly, no PNA, no CHF. D/C home with Zithromax and Prednisone, to f/u with Dr. Hoffman. - Diagnoses Differential Diagnosis/HQI/PQRI: Positive: Asthma, Bronchitis, CHF, TN, Pneumonia, Other - renal insufficiency, anemia Provider Diagnoses: Renal insufficiency, Anemia, Asthmatic bronchitis Discharge - Discharge Plan Condition: Stable Disposition: HOME Prescriptions: Azithromycin TAB* [Zithromax TAB (Z-MANUEL) 250 mg #6 tabs] 2 tab PO .TODAY, THEN 1 DAILY #1 manuel predniSONE TAB* [Deltasone TAB*] 60 mg PO DAILY #15 tab Patient Education Materials: Prednisone (By mouth), Azithromycin (By mouth), Bronchospasm (ED), Anemia (ED) Referrals: Fred Hoffman MD [Primary Care Provider] - 2 Days Additional Instructions: Follow up with Dr. Alberto in 2 days. Please return to your ED if you experience new or worsening symptoms. The documentation as recorded by the Yakov castano SooYoung accurately reflects the service I personally performed and the decisions made by me, Haseeb Adan MD.
--- NOTE | 2016-11-12 07:26 | RAD ---
INDICATION: Cough. Short of breath. COMPARISON: May 10, 2016 TECHNIQUE: AP seated and lateral views were obtained. FINDINGS: Bones/Soft Tissues: There are no acute bony findings. Cardiomediastinal: The cardiomediastinal silhouette is normal. Lungs: There are no infiltrates. Pleura: There are no pleural effusions. Other: None IMPRESSION: NO ACTIVE DISEASE. MILDLY LIMITED EXAMINATION DUE TO BODY HABITUS.
== END 2016-11-12 01:10 | disposition home or self-care (01) ==
LOC: ED 22:03
DX: N28.9 Disorder of kidney and ureter, unspecified (principal); R06.02 Shortness of breath; D64.9 Anemia, unspecified; J45.909 Unspecified asthma, uncomplicated
CPT/HCPCS: 36415; 71020; 80053; 83605; 83880; 84484; 85025; 85610; 93005; 94640; 96374; 99283; A9270-GY

== ENCOUNTER 2017-11-05 18:49 | Emergency (ER) | payer MEDICARE ==
--- OUTSIDE RECORDS SUMMARY | 2017-11-05 19:10 | XMS REPORT ---
:1950 External Reference #:[id number] Author Organization Margarito Johnson M.D., [facility] Address [address] [place] [address] Phone [phone] Care Team Providers Name Role Phone Fred Hoffman MD Care Team Information Perinatal Nurse Unavailable Fred Hoffman MD Primary Care Physician Unavailable Payers Type Date Identification Numbers Payment Provider Subscriber Commercial Policy Number: [id number] BS Medicare Mariah Harrison PayID: [id number] [address] [address] [place] [address] Problems Date Description Provider Status Onset: 10/26/2015 Chronic hepatitis C Active Onset: 06/04/2015 Castillo's esophagus Active Onset: 03/29/2015 Type 2 diabetes mellitus Active Onset: 02/10/2015 Rotator cuff syndrome Active Onset: 01/13/2015 Disorder of rotator cuff Active Onset: 10/15/2014 Cellulitis of forearm Active Onset: 10/15/2014 Pain in elbow Active Onset: 01/08/2013 Shoulder pain Active Onset: 04/17/2012 Body mass index 40+ - severely obese Active Onset: 02/28/2012 Deep venous thrombosis of lower Active extremity Onset: 02/28/2012 History of total knee arthroplasty Active Onset: 10/10/2011 Chronic diastolic heart failure Active Onset: 10/09/2011 Osteoarthritis of knee Active Onset: 11/30/2010 Body mass index 40+ - severely obese Active Onset: 05/26/2008 Osteoarthritis of knee Active Onset: 07/23/2007 Hypercholesterolemia Active Onset: 03/07/2006 Acute pancreatitis Active Onset: 03/07/2006 Gastroesophageal reflux disease Active Onset: 04/15/2002 Essential hypertension Active Onset: Coronary arteriosclerosis Active Onset: Persistent insomnia Active Onset: 12/31/2015 Tear film insufficiency Margarito Johnson M.D. Active Onset: 12/31/2015 Hypertensive retinopathy Margarito Johnson M.D. Active Onset: 12/31/2015 Presbyopia Margarito Johnson M.D. Active Family History Date Family Member(s) Problem(s) Comments Father Noncontributory Mother Cancer Social History Type Date Description Comments ETOH Use Occasionally consumes beer Smoking Patient is a former smoker Quit 4 years ago Allergies, Adverse Reactions, Alerts Date Description Reaction Status Severity Comments 10/11/2006 Effexor [Venlafaxine Hydrochloride] active Medications Medication Date Status Form Strength Qnty SIG Indications Ordering Provider Diclofenac 10/10/ Active Tablets DR 50mg 60tabs Take One Unknown Sodium 2016 Tablet By Mouth Twice Daily as Needed (Neck/Should er Pain) Zolpidem 10/10/ Active Tablets 10mg 30tabs Take One Unknown Tartrate 2016 Tablet By Mouth Once Daily AT Bedtime as Needed For Sleep / Insomnia (Max 1 Tablet Daily) Simvastatin 09/28/ Active Tablets 20mg 30tabs Take One Unknown 2016 Tablet By Mouth Once Daily AT Bedtime Furosemide 09/27/ Active Tablets 40mg 30tabs Take One Unknown 2016 Tablet By Mouth Daily as Needed For Leg Swelling Harvoni 09/16/ Active Tablets 90-400mg 28tabs Take 90-400 Unknown 2016 mg by mouth Daily. Take one tab by mouth Daily. Carvedilol 09/07/ Active Tablets 12.5mg 180tab Take 1 Tab Unknown 2016 s by mouth Two Times Daily With Meals. Losartan 08/26/ Active Tablets 50mg 30tabs Take One Unknown Potassium 2016 Tablet By Mouth Once Daily Hydralazine 06/22/ Active Tablets 25mg 180tab Take 1 Tab Unknown HCL 2016 s by mouth Twice Daily. Humalog 06/20/ Active Solution 100Unit/ML 45unit Inject 13 Unknown Kwikpen 2016 Pen-Inject s Units beneath the skin Three Times Daily. Omeprazole 06/08/ Active Tablets DR 20mg 60tabs Take 1 Tab Unknown 2016 by mouth Twice Daily. Lantus 05/25/ Active Solution 100Unit/ML 90unit Inject 40 Unknown Solostar 2016 Pen-Inject s Units beneath the skin Twice Daily. Gabapentin 05/21/ Active Capsules 400mg 220cap Take 1 Cap Unknown 2016 s by mouth as Directed. Take up to 7 per day, in divided doses Pulmicort 03/03/ Active Aerosol 180mcg/Act 1units Take 2 Act Unknown Flexhaler 2014 by inhalation Twice Daily. Proair HFA 03/03/ Active Aerosol 108(90Base 1units Take 2 Puffs Unknown 2014 ) mcg/Act by inhalation Every Four Hours as Needed (wheezing). Aspirin Ec 00// Active Tablets DR 81mg Take by Unknown 0000 mouth Daily. Vital Signs Date Vital Result Comment 12/31/2015 Intraocular Pressure Right Eye 14 mmHg Intraocular Pressure Left Eye 14 mmHg Results Description No Information Procedures Date CPT Code Description Status 12/31/2015 32699 Ophthalmoscopy Initial Completed 12/31/2015 82411 Eye Exam New Comprehensive Completed Plan of Care 12/31/2015 - Margarito Johnson M.D.E11.9 Type 2 diabetes mellitus without complicationsFollow up:yrH35.033 Hypertensive retinopathy, bilateralFollow up: yrH04.123 Dry eye syndrome of bilateral lacrimal glandsFollow up:yrH52.4 PresbyopiaFollow up:yr
[2017-11-05] MEDS ORDERED: Indomethacin CAP* 25 MG CAP PO ONE ×2 (20:35)
[2017-11-05 20:58] LABS: ABS Basophils 0.1 10^3/ul (0-0.2); ABS Eosinophils 0.3 10^3/ul (0-0.6); ABS Lymphocytes 1.6 10^3/ul (1.0-4.8); ABS Monocytes 0.9 10^3/ul (0-0.8); ABS Neutrophils 6.1 10^3/ul (1.5-7.7); ABS Nucleated RBC 0 10^3/ul; Eosinophil % 3.2 % (0-6); Hematocrit 35 % (42-52); Hemoglobin 11.3 g/dl (14.0-18.0); Lymphocyte % 17.9 % (25-47); Mean Corpuscular HGB Conc 32 g/dl (31-36); Mean Corpuscular Hemoglobin 24 pg (27-31); Mean Corpuscular Volume 76 fL (80-94); Mean Platelet Volume 8.3 um3 (7.4-10.4); Nucleated Red Blood Cells % 0.1; Platelet Count 247 10^3/ul (150-450); Red Blood Count 4.63 10^6/ul (4.00-5.40); Red Cell Distribution Width 14 % (10.5-15)
[2017-11-05 21:15] LABS: EGFR Non-African American 34.9 (>60); Uric Acid 10.4 mg/dL (4.4-7.6)
--- NOTE | 2017-11-05 22:02 | ED ---
Upper Extremity Pain - HPI Summary HPI Summary: 67-year-old male presents with right hand pain for the past couple days. He states he has history of gout. He has never had gout in this location. He states he started colchicine and has not had any relief. He denies any fevers. no spreading Redness. States pain goes from mid forearm down to his right hand. He is right-handed. No injury. No numbness or tingling. No history of IV drug use. He is an insulin-dependent diabetic. No chills or fatigue. - History of Current Complaint Chief Complaint: EDExtremityUpper Stated Complaint: RT HAND INJURY Time Seen by Provider: 11/05/17 19:54 - Allergies/Home Medications Allergies/Adverse Reactions: Allergies Allergy/AdvReac Type Severity Reaction Status Date / Time venlafaxine [From Effexor] Allergy Diaphoresis Verified 11/05/17 19:02 PMH/Surg Hx/FS Hx/Imm Hx Endocrine/Hematology History: Reports: Hx Anticoagulant Therapy - coumadin, Hx Diabetes - On insulin Does Finger Sticks ac tid Denies: Hx Thyroid Disease Cardiovascular History: Reports: Hx Angina, Hx Coronary Artery Disease - STENT, Hx Hypercholesterolemia, Hx Hypertension - ON MEDS, Hx Myocardial Infarction, Other Cardiovascular Problems/Disorders - CAD/OBESITY/IDDM II Denies: Hx Pacemaker/ICD, Hx Valvular Heart Disease Respiratory History: Reports: Hx Sleep Apnea - USES AMBIEM NIGHTLY Denies: Hx Asthma, Hx Chronic Obstructive Pulmonary Disease (COPD) GI History: Reports: Hx Gastroesophageal Reflux Disease - ON DAILY MEDS, Other GI Disorders - HISTORY OF PANCREATITIS- GALLBLADDER REMOVED-?2010 History: Reports: Other Problems/Disorders - contrast induce nephropathy Denies: Hx Renal Disease Musculoskeletal History: Reports: Hx Arthritis - BOTH HANDS, SHOULDERS, Hx Gout Sensory History: Reports: Hx Contacts or Glasses - GLASSES Denies: Hx Hearing Aid Opthamlomology History: Reports: Hx Contacts or Glasses - GLASSES Neurological History: Reports: Hx Nerve Disease - neuropathy Denies: Hx Dementia, Hx Seizures Psychiatric History: Denies: Hx Panic Disorder, Hx Suicide Attempt, Hx Substance Abuse - Surgical History Surgery Procedure, Year, and Place: GALL BLADDER 2010 [facility] [place]. CARDIAC STENT PLACEMENT-[facility] [place] 2010. LEFT FOOT PARTIAL AMPUTATION 2000 [facility] [place]. RIGHT ACHILLES TENDON REPAIR [facility] [place]. R total knee replacement: 2011 [facility] [place]. Rotator cuff repair 02/01/17 BILATERAL SHOULDERS X2. PINS IN BOTH LEGS FOR FRACTURES- AGE 11 Hx Anesthesia Reactions: No - Immunization History Date of Tetanus Vaccine: >10 yrs Date of Influenza Vaccine: Fall 2012 Infectious Disease History: No Infectious Disease History: Reports: Hx Hepatitis - HX OF Dx 01/08 Hep C, TOOK FULL COURES OF MEDS, STATES CLEARED Denies: Hx Clostridium Difficile, Hx Human Immunodeficiency Virus (HIV), Hx Shingles, Hx Tuberculosis, Traveled Outside the [place] in Last 30 Days - Family History Known Family History: Positive: Unknown, Hypertension, Diabetes Negative: Cardiac Disease Family History: No FHx of Malignant Hyperthermia. No FHx of Anesthesia Reaction - Social History Alcohol Use: Weekly Alcohol Amount: 3 times awwek Hx Substance Use: No Substance Use Type: Reports: None Hx Tobacco Use: No Smoking Status (MU): Former Smoker Type: Cigarettes Amount Used/How Often: 1/2 PPD 40 YRS Have You Smoked in the Last Year: No Review of Systems Negative: Fever Negative: Chest Pain Negative: Shortness Of Breath Positive: Myalgia - right hand pain, Edema All Other Systems Reviewed And Are Negative: Yes Physical Exam Triage Information Reviewed: Yes Vital Signs On Initial Exam: Initial Vitals Temp Pulse Resp BP Pulse Ox 97.9 F 79 16 149/72 94 11/05/17 18:58 11/05/17 18:58 11/05/17 18:58 11/05/17 18:58 11/05/17 18:58 Vital Signs Reviewed: Yes Appearance: Positive: Well-Appearing Skin: Positive: Warm, Dry, Other - erythema and warmth to touch of right hand Head/Face: Positive: Normal Head/Face Inspection Eyes: Positive: Normal, Conjunctiva Clear ENT: Positive: Pharynx normal Respiratory/Lung Sounds: Positive: Clear to Auscultation, Breath Sounds Present Cardiovascular: Positive: Normal, RRR Musculoskeletal: Positive: Strength/ROM Intact - right hand/wrist with pain, Edema Right - wrist, Other - nontender over flexor tendon, good pulses, sensation grossly intact Neurological: Positive: Normal Psychiatric: Positive: Normal Diagnostics - Vital Signs Vital Signs Temp Pulse Resp BP Pulse Ox 11/05/17 18:58 97.9 F 79 16 149/72 94 - Laboratory Lab Results: Lab Results 11/05/17 11/05/17 Range/Units 20:49 20:49 WBC 9.0 (3.5-10.8) 10^3/ul RBC 4.63 (4.00-5.40) 10^6/ul Hgb 11.3 L (14.0-18.0) g/dl Hct 35 L (42-52) % MCV 76 L (80-94) fL MCH 24 L (27-31) pg MCHC 32 (31-36) g/dl RDW 14 (10.5-15) % Plt Count 247 (150-450) 10^3/ul MPV 8.3 (7.4-10.4) um3 Neut % (Auto) 67.9 (38-83) % Lymph % (Auto) 17.9 L (25-47) % Stephens % (Auto) 10.0 H (0-7) % Eos % (Auto) 3.2 (0-6) % Baso % (Auto) 1.0 (0-2) % Absolute Neuts (auto) 6.1 (1.5-7.7) 10^3/ul Absolute Lymphs (auto) 1.6 (1.0-4.8) 10^3/ul Absolute Monos (auto) 0.9 H (0-0.8) 10^3/ul Absolute Eos (auto) 0.3 (0-0.6) 10^3/ul Absolute Basos (auto) 0.1 (0-0.2) 10^3/ul Absolute Nucleated RBC 0 10^3/ul Nucleated RBC % 0.1 Sodium 139 (135-145) mmol/L Potassium 4.5 (3.5-5.0) mmol/L Chloride 103 (101-111) mmol/L Carbon Dioxide 27 (22-32) mmol/L Anion Gap 9 (2-11) mmol/L BUN 32 H (6-24) mg/dL Creatinine 1.93 H (0.67-1.17) mg/dL Est GFR ( Amer) 42.2 (>60) Est GFR (Non-Af Amer) 34.9 (>60) BUN/Creatinine Ratio 16.6 (8-20) Glucose 96 (70-100) mg/dL Uric Acid 10.4 H (4.4-7.6) mg/dL Calcium 8.8 (8.6-10.3) mg/dL Total Bilirubin 0.30 (0.2-1.0) mg/dL AST 18 (13-39) U/L ALT 13 (7-52) U/L Alkaline Phosphatase 91 (34-104) U/L C-Reactive Protein 95.32 H (<8.01) mg/L Total Protein 7.7 (6.4-8.9) g/dL Albumin 3.8 (3.2-5.2) g/dL Globulin 3.9 (2-4) g/dL Albumin/Globulin Ratio 1.0 (1-3) Result Diagrams: 11/05/17 20:49 11/05/17 20:49 Lab Statement: Any lab studies that have been ordered have been reviewed, and results considered in the medical decision making process. - Radiology wrist Xray Interpretation: No Acute Changes - no bony changes, edema Radiology Interpretation Completed By: ED Physician Course/Dx - Course Course Of Treatment: 67-year-old male presents with right hand pain for the past couple days. He states he has history of gout. He has never had gout in this location. He states he started colchicine and has not had any relief. He denies any fevers. no spreading Redness. States pain goes from mid forearm down to his right hand. He is right-handed. No injury. No numbness or tingling. No history of IV drug use. He is an insulin-dependent diabetic. No chills or fatigue. On exam has erythema and edema to right radius. Neurovascularly intact. Has full range of passive motion. X-ray shows no bony changes. Labs within normal limits. normal wbc urice acid elevated. We will treat as gout. Gave options to add steroid on and patient refused. We'll continue take colchicine. We'll have follow-up with ortho as patient is currently seeing for his knee replaced. Patient understands agrees with plan. - Diagnoses Differential Diagnosis/HQI/PQRI: Positive: Septic Arthritis, Sprain, Other - gout Provider Diagnoses: Swelling of right hand Discharge - Sign-Out/Discharge Documenting (check all that apply): Patient Departure - Discharge Plan Condition: Good Disposition: HOME Patient Education Materials: Gout (ED) Referrals: Fred Hoffman MD [Primary Care Provider] - Additional Instructions: take colchicine as prescribed Ice, elevated Follow up with ortho Return to ED if develop any new or worsening symptoms - Billing Disposition and Condition Condition: GOOD Disposition: Home
[2017-11-05 22:12] VITALS: BP 148/84
--- NOTE | 2017-11-06 07:45 | RAD ---
INDICATION: Pain and swelling RIGHT hand. No preceding injury. Gout. COMPARISON: July 05, 2017 MRI RIGHT wrist. TECHNIQUE: AP and lateral hand views RIGHT hand. REPORT: Diffuse soft tissue swelling. Negative for fracture or malalignment. Dystrophic calcification along the course of the radial collateral ligament at the first metacarpal phalangeal joint and sclerosis at the metacarpal origin of the radial collateral ligament consistent with sequela of previous ligament injury. No osseous erosions or gouty-type soft tissue calcifications evident. Minimal polyarticular degenerative arthropathy. Peripheral vascular calcifications. Negative for subcutaneous emphysema or conspicuous foreign body. IMPRESSION: #. Diffuse soft tissue swelling. #. Polyarticular mild osteoarthritis. #. Stigmata of previous radial collateral ligament injury at the first metacarpal phalangeal joint. #. Peripheral vascular disease. R0
== END 2017-11-05 22:11 | disposition home or self-care (01) ==
LOC: ED 18:49
DX: M79.89 Other specified soft tissue disorders (principal); I73.9 Peripheral vascular disease, unspecified; M15.9 Polyosteoarthritis, unspecified; M10.9 Gout, unspecified; E11.9 Type 2 diabetes mellitus without complications; I10 Essential (primary) hypertension; I25.10 Atherosclerotic heart disease of native coronary artery without angina pectoris; I25.2 Old myocardial infarction; G47.30 Sleep apnea, unspecified; K21.9 Gastro-esophageal reflux disease without esophagitis; Z87.891 Personal history of nicotine dependence; Z79.01 Long term (current) use of anticoagulants; Z79.4 Long term (current) use of insulin; Z79.899 Other long term (current) drug therapy; Z95.5 Presence of coronary angioplasty implant and graft; Z88.8 Allergy status to other drugs, medicaments and biological substances
CPT/HCPCS: 36415; 80053; 84550; 85025; 86140; 99282; A9270-GY

== ENCOUNTER 2018-07-05 06:01 | Inpatient (IN) | payer MEDICARE ==
--- NOTE | 2018-06-25 15:15 | HP ---
HISTORY AND PHYSICAL: DATE OF ADMISSION/SURGERY: 07/05/18 DATE OF OFFICE VISIT: 06/24/18 SURGEON: Vanita Gimenez MD * (DICTATED BY HEATHER CINTRON) PROCEDURE: Revision left total knee arthroplasty, patellar component. CHIEF COMPLAINT: Left knee pain. HISTORY OF PRESENT ILLNESS: Mr. Harrison is a 68-year-old gentleman with complaints of a painful left total knee arthroplasty. He has elected to proceed with a revision of the left total knee. PAST MEDICAL HISTORY: Hypertension, high cholesterol, gout, diabetes, depression, anxiety, history of hepatitis C, coronary artery disease, history of a DVT, and GERD. PAST SURGICAL HISTORY: Stent placement, bilateral total knee arthroplasties, left partial foot amputation, bilateral shoulder arthroscopies, and cholecystectomy. CURRENT MEDICATIONS: 1. Carvedilol 12.5 mg twice a day. 2. Flovent HFA 1 puff twice a day. 3. Furosemide 40 mg a day as needed. 4. Losartan potassium 25 mg a day. 5. Hydralazine 25 mg 3 times a day. 6. Neurontin 400 mg 3 times a day. 7. Aspirin 81 mg a day. 8. Simvastatin 20 mg a day. 9. Lantus. 10. Zolpidem 10 mg q.h.s. as needed. 11. Omeprazole 20 mg a day. 12. Naproxen 500 mg as needed. 13. Humalog KwikPen. 14. Colchicine 0.6 mg a day. 15. Amlodipine 5 mg a day. ALLERGIES: To EFFEXOR. FAMILY HISTORY: Cancer. SOCIAL HISTORY: He is a 68-year-old gentleman, lives alone. He does not smoke or use drugs. Uses occasional alcohol. REVIEW OF SYSTEMS: A complete 14-point review of systems was reviewed with the patient. It was positive for history of a DVT, history of hepatitis C, diabetes , GERD, and occasional shortness of breath. PHYSICAL EXAMINATION GENERAL: He is well developed, well nourished, in no acute distress. VITAL SIGNS: He stands 68 inches tall, weighs 335 pounds. His blood pressure is 172/102, his heart rate is 88. HEENT: Normocephalic, atraumatic. NECK: Supple. No palpable lymph nodes. PULMONARY: The lungs are clear to auscultation bilaterally. CARDIO: Regular rate and rhythm. Strong S1, S2. ABDOMEN: Soft, nontender, nondistended. NEUROLOGICAL: He is alert and oriented x3. MUSCULOSKELETAL: Left lower extremity: The skin is intact. There is a well- healed incision over the anterior left knee. There is a moderate effusion. Range of motion is 5 to 100 degrees of flexion with patellofemoral crepitus. His calf is soft and nontender. He is able to dorsiflex. He has a 2+ dorsalis pedis pulse. ASSESSMENT AND PLAN: Mr. Harrison is a 68-year-old gentleman with a painful left total knee arthroplasty. He has elected to proceed with revision of a left total knee arthroplasty, patellar component. The surgery is scheduled for 07/05/[address] Gimenez discussed the risks and benefits of the surgery at today's visit and all of his questions were answered. He will follow up with Dr. Gimenez 2 weeks after the surgery. No TXA will be used on this patient because of a history of a DVT. HEATHER CINTRON [id number]/[facility] #: [id number] DUANE
[~2018-07-05 06:01] MED LIST changes: -Atracurium* 10 MG/ML 10 ML VIAL ONE; -Buffered Lidocaine 1% SYR 3ML* 3 ML/SYR SYRINGE INTRADERM ONE; -Buffered Lidocaine 1% SYR 3ML* 3 ML/SYR SYRINGE ONE; -Bupivacaine 0.25% SDV* 30 ML ONE; -Famotidine IV* 10 MG/ML 2 ML (20 mg) ONE; -Insulin REGULAR(*) 1 UNITS UNIT ONE; -Insulin REGULAR(*) 1 UNITS UNIT SUBCUT SCH; -KETAMINE HCL* 50 MG/ML 10 ML VIAL ONE; -Labetalol IV* 5 MG/ML 20 ML VIAL ONE; +Lactated Ringers 1000 ML Bag* 1,000 ML IV SCH; -Lidocaine 2% MPF* 2 ML VIAL ONE; -Lidocaine 2% PF* 10 ML AMP ONE; -Metoprolol Tartrate IV* 1 MG/ML 5 ML VIAL ONE; -Midazolam* 1 MG/ML 5 ML VIAL (5 MG) ONE; -Morphine INJ* 10 MG/ML 1 ML CARPUJECT ONE; -Morphine INJ* 2 MG/ML 1 ML CARPUJECT IV PRN; -Ondansetron INJ* 2 MG/ML VIAL ONE; -PROCHLORPERAZINE INJ 5 MG/ML 2 ML VIAL IV PRN; -PROCHLORPERAZINE INJ 5 MG/ML 2 ML VIAL ONE; -Propofol* 10 MG/ML 20 ML BTL IV PUSH ONE; -ceFAZolin 1 GM in Dextrose (*) 1 GM/50 ML BAG IVPB ONE; -ceFAZolin 2 GM PREMIX (*) 2 GM/50 ML BAG IVPB ONE; -fentaNYL* 50 MCG/ML 2 ML VIAL (100 MCG VIAL) IV PRN; -fentaNYL* 50 MCG/ML 5 ML VIAL (250 MCG VIAL) ONE; -oxyCODONE/Acetamin 5/325 MG* TAB PO PRN
[2018-07-05] MEDS ORDERED: Famotidine IV* 10 MG/ML 2 ML (20 mg) ONE (07:21)
[2018-07-05] MEDS ORDERED: Buffered Lidocaine 1% SYRIN* 1 ML/SYRINGE INTRADERM ONE (07:21)
[2018-07-05] MEDS ORDERED: ceFAZolin 2 GM in NS PREMIX(*) 2 GM/100 ML BAG IVPB ONE (07:23)
[2018-07-05] MEDS ORDERED: ceFAZolin 1 GM in Dextrose (*) 1 GM/50 ML BAG IVPB ONE (07:23)
[2018-07-05] MEDS: Buffered Lidocaine 1% SYRIN* 1 ML/SYRINGE INTRADERM ONE ×2 (07:50→14:01)
[2018-07-05] MEDS ORDERED: Midazolam* 1 MG/ML 5 ML VIAL (5 MG) ONE (08:04)
[2018-07-05] MEDS ORDERED: fentaNYL* 50 MCG/ML 2 ML VIAL (100 MCG VIAL) ONE (08:04)
[2018-07-05] MEDS ORDERED: ROPIVACAINE 5 MG/ML 30 ML BTL (0.5%) ONE (08:55)
[2018-07-05] MEDS ORDERED: Lidocaine 1%* 5 ML VIAL ONE (08:55)
[2018-07-05] MEDS ORDERED: KETAMINE HCL* 50 MG/ML 10 ML VIAL ONE (09:40)
[2018-07-05] MEDS ORDERED: Ondansetron TAB* 4 MG PO PRN (10:07)
[2018-07-05] MEDS ORDERED: Ondansetron INJ* 2 MG/ML VIAL IV PRN (10:07)
[2018-07-05] MEDS ORDERED: Bisacodyl SUPP* 10 MG SUPP PR PRN (10:07)
[2018-07-05] MEDS ORDERED: oxyCODONE/Acetamin 5/325 MG* TAB PO PRN ×3 (10:07→12:23)
[2018-07-05] MEDS ORDERED: Cyclobenzaprine TAB* 10 MG PO PRN (10:07)
[2018-07-05] MEDS ORDERED: Magnesium Hydroxide LIQ* 30 ML UDC PO PRN (10:07)
[2018-07-05] MEDS ORDERED: Polyethylene Glycol 3350* 17 GM PACKET PO PRN (10:07)
[2018-07-05] MEDS ORDERED: Morphine 4 MG/ML VIAL (1 ml) 4 MG/ML VIAL IV PRN (10:07)
[2018-07-05] MEDS ORDERED: traMADol TAB* 50 MG PO PRN (10:07)
[2018-07-05] MEDS ORDERED: diPHENhydraMINE IV* 50 MG/ML 1 ml VIAL (BENADRYL) IV PRN (10:07)
[2018-07-05] MEDS ORDERED: Colchicine* 0.6 MG TAB PO PRN (10:10)
[2018-07-05] MEDS ORDERED: Zolpidem TAB* 10 MG PO PRN (10:10)
[2018-07-05] MEDS ORDERED: Furosemide TAB* 20 MG PO PRN (10:10)
[2018-07-05] MEDS ORDERED: Dexamethasone IV* 4 MG/ML 1 ML (4 MG) ONE (10:36)
[2018-07-05] MEDS ORDERED: Succinylcholine* 20 MG/ML 10 ML VIAL ONE (10:36)
[2018-07-05] MEDS ORDERED: EPHEDrine (Pressors)* 50 MG/ML VIAL ONE (10:36)
[2018-07-05] MEDS ORDERED: Phenylephrine 40 MCG/ML SYRINGE ONE (10:36)
[2018-07-05] MEDS ORDERED: DiMENhydriNATE IV* 50 MG/ML VIAL ONE (10:36)
[2018-07-05] MEDS ORDERED: Lidocaine 2% PF * 5 ML VIAL ONE (10:36)
[2018-07-05] MEDS ORDERED: Ondansetron INJ* 2 MG/ML VIAL ONE (10:36)
[2018-07-05] MEDS ORDERED: Ketorolac INJ* 30 MG/ML 1 ML VIAL ONE (10:36)
[2018-07-05] MEDS ORDERED: Propofol* 10 MG/ML 20 ML BTL ONE ×2 (10:36→11:01)
[2018-07-05] MEDS ORDERED: HYDROmorphone INJ1* 1 MG/ML SYRINGE ONE (11:02)
[2018-07-05] MEDS ORDERED: Bupivacaine 0.5%* 50 ML VIAL ONE (11:04)
[2018-07-05] MEDS ORDERED: oxyCODONE/Acetamin 5/325 MG* TAB ONE (12:05)
[2018-07-05] MEDS ORDERED: HYDROmorphone INJ1* 1 MG/ML SYRINGE IV PRN (12:23)
[2018-07-05] MEDS ORDERED: Naloxone* 0.4 MG/ML 1 ML VIAL IV PRN (12:23)
[2018-07-05] MEDS ORDERED: DiMENhydriNATE IV* 50 MG/ML VIAL IV PUSH PRN (12:23)
--- NOTE | 2018-07-05 13:44 | PN ---
Progress Note - Progress Note Date of Service: 07/05/18 Note: resting comfortably with no complaints; able to dorsi flex/plantar flex, 2+DP pulse and intact sensation; dressing c/d/i
[2018-07-05] MEDS ORDERED: hydrALAZINE TAB* 25 MG PO SCH (14:00)
[2018-07-05] MEDS: Gabapentin CAP(*) 400 MG PO SCH ×3 (14:07→21:19)
[2018-07-05] MEDS: oxyCODONE TAB* 5 MG TAB PO PRN ×3 (14:08→23:51)
[2018-07-05] MEDS ORDERED: Dextrose 50% Syringe 50 ML* 25 GM/50 ML SYRINGE IV PUSH PRN (14:31)
[2018-07-05] MEDS: Acetaminophen TAB* 325 MG PO SCH (15:06)
--- NOTE | 2018-07-05 16:04 | CONS ---
CONSULTATION REPORT: DATE OF CONSULT: 07/05/18 REQUESTING PROVIDER: Dr. Vanita Gimenez. REASON FOR CONSULT: Co-management of chronic conditions. HISTORY OF PRESENT ILLNESS: Mariah Harrison is a 68-year-old black male with past medical history significant for coronary artery disease, status post stent ; hypertension; diabetes mellitus, type 2, insulin dependent, who is postop day 0 status post left patellar revision. The patient was complaining of a painful left total knee arthroplasty and elected to proceed with revision of the left total knee arthroplasty. Hospital Medicine was consulted for co-management of chronic medical conditions. I evaluated the patient on the surgical short stay floor. The patient is feeling well other than his left knee pain. He mentions that he is actually taking 25 mg of losartan at home. He demonstrates this on medication list from his PCP from 06/17/18 and states that he has been breaking the 50 mg tablets in half. The patient's medical list that he provided from his PCP also demonstrates that he takes Lantus 46 units subcu twice daily and Humalog 13 units subcu t.i.d. Otherwise, the patient denies abdominal pain, nausea, vomiting, chest pain, shortness of breath, tachycardia, palpitations, headache, dizziness, or visual changes. PAST MEDICAL HISTORY: 1. Hypertension. 2. Hypercholesterolemia. 3. Gout. 4. Diabetes mellitus, type 2, insulin dependent, with neuropathy. 5. Coronary artery disease, status post stent. 6. Anxiety. 7. History of DVT. 8. History of hepatitis C. 9. GERD. PAST SURGICAL HISTORY: Status post stent, bilateral total knee arthroplasties, left forefoot amputation, bilateral shoulder arthroscopies, cholecystectomy. HOME MEDICATIONS: 1. Losartan 25 mg p.o. daily. 2. Ambien 10 mg p.o. at bedtime p.r.n. 3. Colchicine 0.6 mg p.o. daily p.r.n. gout pain. 4. Humalog 13 units subcu daily. 5. Lantus 46 units subcu b.i.d. 6. Hydralazine 25 mg p.o. t.i.d. 7. Lasix 40 mg p.o. daily p.r.n. for leg swelling. 8. Coreg 12.5 mg p.o. b.i.d. 9. Amlodipine 10 mg p.o. daily. 10. 81 mg p.o. daily. 11. Naproxen 500 mg p.o. daily p.r.n. pain. 12. Ventolin 2 puffs inhaled q.4 hours p.r.n. wheezing. 13. Gabapentin 400 mg p.o. four times a day. 14. Simvastatin 20 mg p.o. at bedtime. 15. Omeprazole 20 mg p.o. daily. ALLERGIES: Allergy to VENLAFAXINE, "diaphoresis." FAMILY HISTORY: The patient notes a family history of cancer. SOCIAL HISTORY: He denies tobacco use and drug use and drinks alcohol only occasionally. REVIEW OF SYSTEMS: An 11-system review of systems was completed and all pertinent positives and negatives are in the HPI. All other systems are negative. PHYSICAL EXAM: General: An obese black male, appears stated age, lying comfortably in hospital bed, appearing in no acute distress. Head is normocephalic, atraumatic. Eyes: EOMI. PERRL. Sclerae anicteric. ENT: Mucous membranes moist. Neck: Supple without JVD. Cardio: Regular rate and rhythm without murmurs, rubs, or gallops. Respiratory: Lungs are clear to auscultation without wheezes, rales, or rhonchi. Abdomen: Abdomen is obese, soft, nontender, nondistended. Extremities: Left forefoot amputation. No edema or clubbing. Neuro: The patient is alert and oriented x3. Cranial nerves II through XII are grossly intact. Psych: Mood and affect are euthymic. The patient is pleasant and cooperative. LABORATORY DATA: Blood glucose 202, 178. ASSESSMENT AND PLAN: Mariah Harrison is a 68-year-old black male with past medical history significant for coronary artery disease, status post stent; hypertension; insulin-dependent diabetes mellitus complicated by neuropathy; history of deep venous thrombosis, who presents for elective left patella revision with Dr. Gimenez. Hospital Medicine is consulted for co-management of chronic medical conditions. 1. Insulin-dependent diabetes mellitus. The patient's home medication list which he brings from his PCP visit from 06/17/18 reflects a different insulin regimen than was entered in the computer and I have updated his home medications to reflect this. The patient takes 46 units of Lantus b.i.d. and I will decrease to 40 b.i.d. and add sliding scale lispro. Fingersticks a.c. h.s. 2. Hypertension. Ordered holding parameters to hold all antihypertensive medications for systolic blood pressure less than 120. The patient has been normotensive since arriving to the PACU and then to the floor. We will continue to monitor. The patient updated me that his losartan dose is 25 mg at home and this has been updated in his home medication list as well. 3. Recommend holding home Ambien in the setting of opiate use for pain control. 4. Status post patellar revision. Management per Orthopedic Surgery. 5. DVT prophylaxis: The patient does have history of deep venous thrombosis. DVT prophylaxis is per Orthopedic Surgery. 6. Disposition: Per Orthopedic Surgery. Thank you for allowing us to participate in the care of this patient. We will follow during this admission. HEATHER RICHARD [id number]/[facility] #: [id number] DUANE
[2018-07-05] MEDS: ceFAZolin 1 GM ADVAN(*) 1 GM in NS 0.9% 50 ML* 50 ML IVPB SCH (17:56)
[2018-07-05] MEDS: Insulin LISPRO* 1 UNITS UNIT SUBCUT SCH ×2 (18:01→22:02)
[2018-07-05] MEDS: Carvedilol TAB* 6.25 MG PO SCH (18:02)
[2018-07-05] MEDS ORDERED: Insulin GLARGINE(*) 1 UNITS UNIT SUBCUT SCH ×3 (21:00)
[2018-07-05] MEDS ORDERED: Insulin LISPRO* 1 UNITS UNIT SUBCUT SCH (21:00)
[2018-07-05] MEDS: Magnesium Hydroxide LIQ* 30 ML UDC PO SCH (21:17)
[2018-07-05] MEDS: Atorvastatin* 10 MG TAB PO SCH (21:18)
[2018-07-05] MEDS: Docusate CAP* 100 MG PO SCH (21:18)
[2018-07-05] MEDS: hydrALAZINE TAB* 25 MG PO SCH (21:19)
[2018-07-05] MEDS: Insulin GLARGINE(*) 1 UNITS UNIT SUBCUT SCH (22:03)
[2018-07-05] MEDS: Lactated Ringers 1000 ML Bag* 1,000 ML IV SCH (23:31)
[2018-07-06] MEDS: Acetaminophen TAB* 325 MG PO SCH ×4 (01:26→21:58)
[2018-07-06] MEDS: ceFAZolin 1 GM ADVAN(*) 1 GM in NS 0.9% 50 ML* 50 ML IVPB SCH ×2 (02:39→12:00)
[2018-07-06 06:21] LABS: Hematocrit 31 % (36-46); Hemoglobin 9.8 g/dL (14.0-18.0); Mean Platelet Volume 9.8 fL (7.4-10.4); Platelet Count 144 10^3/uL (150-450)
[2018-07-06 06:28] LABS: BUN/Creatinine Ratio 18.7 (8-20); Calcium 7.9 mg/dL (8.6-10.3); EGFR African American 42.1 (>60); EGFR Non-African American 34.8 (>60); Potassium 4.4 mmol/L (3.5-5.0)
[2018-07-06] MEDS: oxyCODONE TAB* 5 MG TAB PO PRN ×4 (07:58→21:48)
[2018-07-06] MEDS: Gabapentin CAP(*) 400 MG PO SCH ×4 (07:58→21:34)
[2018-07-06] MEDS: Magnesium Hydroxide LIQ* 30 ML UDC PO SCH ×2 (07:58→21:51)
[2018-07-06] MEDS: Apixaban* 2.5 MG TAB PO SCH ×2 (07:59→21:34)
[2018-07-06] MEDS: amLODIPine TAB* 5 MG PO SCH (07:59)
[2018-07-06] MEDS: Docusate CAP* 100 MG PO SCH ×2 (08:00→21:34)
[2018-07-06] MEDS: Pantoprazole TAB * 40 MG TAB PO SCH (08:00)
[2018-07-06] MEDS ORDERED: Calcium Gluconate INJ* 1 GM in NS 0.9% 50 ML* 50 ML IVPB ONE (08:00)
[2018-07-06] MEDS: Losartan TAB* 25 MG PO SCH (08:01)
[2018-07-06] MEDS: Carvedilol TAB* 6.25 MG PO SCH ×2 (08:01→17:41)
[2018-07-06] MEDS: Insulin LISPRO* 1 UNITS UNIT SUBCUT SCH ×6 (08:02→21:50)
[2018-07-06] MEDS: hydrALAZINE TAB* 25 MG PO SCH ×3 (08:02→21:35)
[2018-07-06] MEDS: Insulin GLARGINE(*) 1 UNITS UNIT SUBCUT SCH ×2 (08:03→21:49)
[2018-07-06] MEDS ORDERED: Pneumococcal *Vac Polyvalent 0.5 ML VIAL IM ONE (09:00)
[2018-07-06] MEDS ORDERED: Losartan TAB* 25 MG PO SCH (09:00)
[2018-07-06] MEDS ORDERED: amLODIPine TAB* 5 MG PO SCH (09:00)
[2018-07-06] MEDS ORDERED: Dextrose 50% Syringe 50 ML* 25 GM/50 ML SYRINGE IV PUSH PRN (09:12)
--- NOTE | 2018-07-06 09:24 | PN ---
Subjective Date of Service: 07/06/18 Interval History: Pt seen and examined. Meds and labs reviewed. CC: N/A ROS: Denied SCRUGGS/dizziness, F/C, N/V, CP, SOB, increased cough, sputum production , abd pain, diarrhea, constipation, dysuria, myalgias, arthralgias, throat pain , and new skin lesions. The rest of the 14 point ROS are unremarkable. PHYSICAL EXAM: GEN APPEARANCE: Awake, not in acute distress HEENT: NC/AT, PERRLA, moist oral mucosa, (-) throat erythema NECK: Soft, supple, (-) cervical LAD, (-)JVD HEART: S1S2 WNL, RRR, No MRG CHEST: CTA, BL, GAE, No W/R/R ABD: Soft, ND/NT, NABS 4x Q EXT: No C/C/LLE cdi SKIN: Warm to touch PSYCH: No active psychosis, hallucinations, depression, SI/HI Objective Active Medications: Acetaminophen (Tylenol Tab*) 975 mg PO Q8HR [facility] Last Admin: 07/06/18 06:31 Dose: 975 mg Albuterol (Ventolin Hfa Inhaler*) 2 puff INH Q4H PRN PRN Reason: WHEEZING Amlodipine Besylate (Norvasc Tab*) 10 mg PO QAM [facility] Last Admin: 07/06/18 07:59 Dose: 10 mg Apixaban (Eliquis*) 2.5 mg PO BID [facility] Last Admin: 07/06/18 07:59 Dose: 2.5 mg Atorvastatin Calcium (Lipitor*) 10 mg PO BEDTIME [facility] Last Admin: 07/05/18 21:18 Dose: 10 mg Bisacodyl (Dulcolax Supp*) 10 mg WI DAILY PRN PRN Reason: constipation Carvedilol (Coreg Tab*) 12.5 mg PO BID WITH MEALS [facility] Last Admin: 07/06/18 08:01 Dose: 12.5 mg Colchicine (Colcrys*) 0.6 mg PO DAILY PRN PRN Reason: RASH Cyclobenzaprine HCl (Flexeril Tab*) 10 mg PO TID PRN PRN Reason: SPASMS Last Admin: 07/05/18 14:08 Dose: 10 mg Dextrose (D50w Syringe 50 Ml*) 12.5 gm IV PUSH .FOR FS < 60 - SS PRN PRN Reason: FS < 60 Dextrose (D50w Syringe 50 Ml*) 12.5 gm IV PUSH .FOR FS < 60 - SS PRN PRN Reason: FS < 60 Diphenhydramine HCl (Benadryl Iv*) 12.5 mg IV Q6H PRN PRN Reason: PRURITIS Docusate Sodium (Colace Cap*) 100 mg PO BID [facility] Last Admin: 07/06/18 08:00 Dose: 100 mg Gabapentin (Neurontin Cap(*)) 400 mg PO QID [facility] Last Admin: 07/06/18 07:58 Dose: 400 mg Hydralazine HCl (Apresoline Tab*) 25 mg PO TID [facility] Last Admin: 07/06/18 08:02 Dose: 25 mg Cefazolin Sodium 1 gm/ Sodium (Chloride) 50 mls @ 200 mls/hr IVPB Q8H [facility] Stop: 07/06/18 10:14 Last Admin: 07/06/18 02:39 Dose: 200 mls/hr Lactated Ringer's (Lactated Ringers 1000 Ml Bag*) 1,000 mls @ 100 mls/hr IV PER RATE [facility] Last Admin: 07/05/18 23:31 Dose: 100 mls/hr Insulin Glargine (Lantus(*)) 44 units SUBCUT BID [facility] Insulin Human Lispro (Humalog*) 0 units SUBCUT ACHS [facility]; Protocol Last Admin: 07/06/18 08:02 Dose: 6 units Insulin Human Lispro (Humalog*) 6 units SUBCUT AC [facility] Lactulose (Lactulose*) 30 ml PO Q6H PRN PRN Reason: constipation Losartan Potassium (Cozaar Tab*) 25 mg PO DAILY [facility] Last Admin: 07/06/18 08:01 Dose: 25 mg Magnesium Hydroxide (Milk Of Magnesia Liq*) 30 ml PO BID [facility] Last Admin: 07/06/18 07:58 Dose: Not Given Magnesium Hydroxide (Milk Of Magnesia Liq*) 30 ml PO Q6H PRN PRN Reason: constipation Morphine Sulfate (Morphine 4 Mg/Ml Vial (1 Ml)) 2 mg IV Q2H PRN PRN Reason: PAIN Ondansetron HCl (Zofran Inj*) 4 mg IV Q6H PRN PRN Reason: nausea Ondansetron HCl (Zofran Tab*) 4 mg PO Q6H PRN PRN Reason: NAUSEA Oxycodone HCl (Roxycodone Tab*) 10 mg PO Q4H PRN PRN Reason: SEVERE PAIN Last Admin: 07/06/18 07:58 Dose: 10 mg Oxycodone/Acetaminophen (Percocet 5/325 Tab*) 1 tab PO Q4H PRN PRN Reason: PAIN Last Admin: 07/05/18 12:06 Dose: 1 tab Oxycodone/Acetaminophen (Percocet 5/325 Tab*) 2 tab PO Q4H PRN PRN Reason: PAIN Pantoprazole Sodium (Protonix Tab*) 40 mg PO DAILY JOSE Last Admin: 07/06/18 08:00 Dose: 40 mg Polyethylene Glycol/Electrolytes (Miralax*) 17 gm PO DAILY PRN PRN Reason: Constipation Tramadol HCl (Ultram*) 50 mg PO Q6H PRN PRN Reason: PAIN Vital Signs - 8 hr 07/06/18 07/06/18 07/06/18 03:31 06:28 06:29 Temperature 97.9 F Pulse Rate 80 Respiratory 16 18 18 Rate Blood Pressure 143/71 (mmHg) O2 Sat by Pulse 99 Oximetry 07/06/18 07/06/18 07/06/18 07:19 07:58 08:21 Temperature 98.0 F Pulse Rate 77 Respiratory 17 16 16 Rate Blood Pressure 146/65 (mmHg) O2 Sat by Pulse 97 Oximetry Oxygen Devices in Use Now: None Result Diagrams: 07/06/18 05:47 07/06/18 05:47 Microbiology and Other Data: Microbiology 07/05/18 10:15 Gram Stain - Final Knee Left Assess/Plan/Problems-Billing Assessment: - Patient Problems (1) Surgery, elective Current Visit: Yes Status: Acute Code(s): Z41.9 - ENCNTR FOR PROC FOR PURPOSE OTH THAN [facility] [place] SNOMED Code(s): 183488364 Comment: #S/P L. patellar revision: -POD#1 -Defer further input from orthopedic Dept -Bx of [facility] pending (2) IDDM (insulin dependent diabetes mellitus) Current Visit: Yes Status: Acute Code(s): E11.9 - TYPE 2 DIABETES MELLITUS WITHOUT COMPLICATIONS; Z79.4 - DELIVERER OUTSIDE (CURRENT) USE OF INSULIN SNOMED Code( s): 95755820 Comment: -Increase Lantus to 44 units SQ BID and will add 6 units qAC of Lispro -Continue ISS -Continue to monitor FS (3) HTN (hypertension) Current Visit: Yes Status: Acute Code(s): I10 - ESSENTIAL (PRIMARY) HYPERTENSION SNOMED Code(s): 45209657 Comment: -Stable; relatively well-controlled -Will modify diet for low sodium -Continue Amlodipine, Carvedilol, Hydralazine, and Losartan (4) Acute on chronic renal insufficiency Current Visit: Yes Status: Acute Code(s): N28.9 - DISORDER OF KIDNEY AND URETER, UNSPECIFIED; N18.9 - CHRONIC KIDNEY DISEASE, UNSPECIFIED SNOMED Code(s ): 589376283 Comment: -I/Os in the positives -Continue IVF and watchful waiting at this time -Hold off on Lasix for today and consider D/C of LR in AM if renal function improves; consider restarting Lasix in AM? -Continue watchful waiting (5) DVT prophylaxis Current Visit: Yes Status: Acute Code(s): IXN2721 - SNOMED Code(s): 280233771 Comment: -Continue Eliquis; lulu given previous hx of DVT Status and Disposition: -Defer with ortho (outpt PT?)
[2018-07-06] MEDS: Lactated Ringers 1000 ML Bag* 1,000 ML IV SCH (09:45)
--- NOTE | 2018-07-06 09:48 | PN ---
Progress Note - Progress Note Date of Service: 07/06/18 SOAP: Subjective: Pt. is doing well - reports pain is already improved. Objective: Vital Signs: Temp Pulse Resp BP Pulse Ox 98.0 F 77 16 146/65 97 07/06/18 07:19 07/06/18 07:19 07/06/18 08:21 07/06/18 07:19 07/06/18 07:19 Laboratory Results - last 24 hr 07/05/18 07/05/18 07/05/18 07:20 11:36 16:44 Hgb Hct Plt Count MPV Sodium Potassium Chloride Carbon Dioxide Anion Gap BUN Creatinine Est GFR ( Amer) Est GFR (Non-Af Amer) BUN/Creatinine Ratio Glucose POC Glucose (mg/dL) 202 H 178 H 169 H Calcium 07/05/18 07/05/18 07/05/18 21:06 21:09 21:28 Hgb Hct Plt Count MPV Sodium Potassium Chloride Carbon Dioxide Anion Gap BUN Creatinine Est GFR ( Amer) Est GFR (Non-Af Amer) BUN/Creatinine Ratio Glucose 315 H POC Glucose (mg/dL) 36 L* 340 H Calcium 07/06/18 07/06/18 05:47 05:47 Hgb 9.8 L Hct 31 L Plt Count 144 L MPV 9.8 Sodium 133 L Potassium 4.4 Chloride 103 Carbon Dioxide 23 Anion Gap 7 BUN 36 H Creatinine 1.93 H Est GFR ( Amer) 42.1 Est GFR (Non-Af Amer) 34.8 BUN/Creatinine Ratio 18.7 Glucose 238 H POC Glucose (mg/dL) Calcium 7.9 L LLE - dressing c/d/i. distally min swelling, +df/pf, full sens lt, 2+ dp pulse. Assessment: 68 yo M pod 1 s/p revision LTKA - patellar component with wide scar excision Plan: wbat lle pt/ot pmru placement pending. nancy
[2018-07-06] MEDS: Albuterol HFA INHALER* 8 gm MDI INH PRN (17:45)
[2018-07-06] MEDS: Atorvastatin* 10 MG TAB PO SCH (21:34)
[2018-07-07] MEDS: Acetaminophen TAB* 325 MG PO SCH ×3 (05:52→23:24)
[2018-07-07 06:11] LABS: Hematocrit 29 % (36-46); Hemoglobin 9.4 g/dL (14.0-18.0); Mean Platelet Volume 9.4 fL (7.4-10.4); Platelet Count 138 10^3/uL (150-450)
[2018-07-07 06:21] LABS: Albumin 3.5 g/dL (3.2-5.2); Albumin/Globulin Ratio 1.4 (1-3); BUN/Creatinine Ratio 22.7 (8-20); Calcium 7.9 mg/dL (8.6-10.3); EGFR African American 39.7 (>60); EGFR Non-African American 32.8 (>60); Globulin 2.5 g/dL (2-4); Magnesium 1.9 mg/dL (1.9-2.7); Phosphorus 3.5 mg/dL (2.5-5.0); Potassium 4.1 mmol/L (3.5-5.0); Total Bilirubin 0.3 mg/dL (0.2-1.0)
[2018-07-07] MEDS: oxyCODONE TAB* 5 MG TAB PO PRN ×3 (07:20→20:06)
[2018-07-07] MEDS: Albuterol HFA INHALER* 8 gm MDI INH PRN (07:27)
[2018-07-07] MEDS: Docusate CAP* 100 MG PO SCH ×2 (08:11→20:02)
[2018-07-07] MEDS: Insulin LISPRO* 1 UNITS UNIT SUBCUT SCH ×7 (08:12→21:17)
[2018-07-07] MEDS: Insulin GLARGINE(*) 1 UNITS UNIT SUBCUT SCH ×2 (08:12→21:23)
[2018-07-07] MEDS: Apixaban* 2.5 MG TAB PO SCH ×2 (08:14→20:06)
[2018-07-07] MEDS: Losartan TAB* 25 MG PO SCH (08:14)
[2018-07-07] MEDS: amLODIPine TAB* 5 MG PO SCH (08:14)
[2018-07-07] MEDS: hydrALAZINE TAB* 25 MG PO SCH ×3 (08:14→20:07)
[2018-07-07] MEDS: Gabapentin CAP(*) 400 MG PO SCH ×4 (08:14→21:24)
[2018-07-07] MEDS: Pantoprazole TAB * 40 MG TAB PO SCH (08:14)
[2018-07-07] MEDS: Carvedilol TAB* 6.25 MG PO SCH ×2 (08:17→17:12)
[2018-07-07] MEDS: Magnesium Hydroxide LIQ* 30 ML UDC PO SCH ×3 (08:36→21:25)
--- NOTE | 2018-07-07 10:37 | PN ---
Progress Note - Progress Note Date of Service: 07/07/18 SOAP: Subjective: Pt is doing well. Pain controlled. Doing well with PT. Denies NT, F/C, CP/SOB or calf pain. Objective: PE- 68 y/o WDWN M NAD, A&Ox3 LLE- dressing changed inc c/d/i, calf soft NT, +DF/PF ankle, +2 Dp pulse, SILT distally Vital Signs Temp Pulse Resp BP Pulse Ox 97.9 F 75 18 145/61 98 07/07/18 07:54 07/07/18 07:54 07/07/18 09:59 07/07/18 07:54 07/07/18 08:00 Laboratory Results - last 24 hr 07/06/18 07/06/18 07/06/18 11:57 17:31 21:37 Hgb Hct Plt Count MPV Sodium Potassium Chloride Carbon Dioxide Anion Gap BUN Creatinine Est GFR ( Amer) Est GFR (Non-Af Amer) BUN/Creatinine Ratio Glucose POC Glucose (mg/dL) 214 H 193 H 212 H Calcium Ionized Calcium Phosphorus Magnesium Total Bilirubin AST ALT Alkaline Phosphatase Total Protein Albumin Globulin Albumin/Globulin Ratio 07/07/18 07/07/18 07/07/18 05:55 05:55 05:55 Hgb 9.4 L Hct 29 L Plt Count 138 L MPV 9.4 Sodium 137 Potassium 4.1 Chloride 105 Carbon Dioxide 25 Anion Gap 7 BUN 46 H Creatinine 2.03 H Est GFR ( Amer) 39.7 Est GFR (Non-Af Amer) 32.8 BUN/Creatinine Ratio 22.7 H Glucose 196 H POC Glucose (mg/dL) Calcium 7.9 L Ionized Calcium 1.05 L Phosphorus 3.5 Magnesium 1.9 Total Bilirubin 0.30 AST 59 H ALT 21 Alkaline Phosphatase 68 Total Protein 6.0 L Albumin 3.5 Globulin 2.5 Albumin/Globulin Ratio 1.4 07/07/18 07:29 Hgb Hct Plt Count MPV Sodium Potassium Chloride Carbon Dioxide Anion Gap BUN Creatinine Est GFR ( Amer) Est GFR (Non-Af Amer) BUN/Creatinine Ratio Glucose POC Glucose (mg/dL) 209 H Calcium Ionized Calcium Phosphorus Magnesium Total Bilirubin AST ALT Alkaline Phosphatase Total Protein Albumin Globulin Albumin/Globulin Ratio essment: 68 yo M pod 2 s/p revision LTKA - patellar component with wide scar excision Plan: wbat lle Cont pt/ot eliquis for DVT prophylaxis Percocet for pain mgmt Possible DC to PMRU, pending eval
[2018-07-07 11:31] LABS: Urine Creatinine Concentration 86.7 mg/dL
--- NOTE | 2018-07-07 12:06 | PN ---
Subjective Date of Service: 07/07/18 Interval History: Pt seen and examined. Meds and labs reviewed. CC: N/A ROS: Denied SCRUGGS/dizziness, F/C, N/V, CP, SOB, increased cough, sputum production , abd pain, diarrhea, constipation, dysuria, myalgias, arthralgias, throat pain , and new skin lesions. The rest of the 14 point ROS are unremarkable. PHYSICAL EXAM: GEN APPEARANCE: Awake, not in acute distress HEENT: NC/AT, PERRLA, moist oral mucosa, (-) throat erythema, (+)dry oral mucosa NECK: Soft, supple, (-) cervical LAD, (-)JVD HEART: S1S2 WNL, RRR, No MRG CHEST: CTA, BL, GAE, No W/R/R ABD: Soft, ND/NT, NABS 4x Q EXT: No C/C/LLE cdi SKIN: Warm to touch PSYCH: No active psychosis, hallucinations, depression, SI/HI Objective Active Medications: Acetaminophen (Tylenol Tab*) 975 mg PO Q8HR [facility] Last Admin: 07/07/18 05:52 Dose: Not Given Albuterol (Ventolin Hfa Inhaler*) 2 puff INH Q4H PRN PRN Reason: WHEEZING Last Admin: 07/07/18 07:27 Dose: 2 puff Amlodipine Besylate (Norvasc Tab*) 10 mg PO QAM [facility] Last Admin: 07/07/18 08:14 Dose: 10 mg Apixaban (Eliquis*) 2.5 mg PO BID [facility] Last Admin: 07/07/18 08:14 Dose: 2.5 mg Atorvastatin Calcium (Lipitor*) 10 mg PO BEDTIME [facility] Last Admin: 07/06/18 21:34 Dose: 10 mg Bisacodyl (Dulcolax Supp*) 10 mg DC DAILY PRN PRN Reason: constipation Carvedilol (Coreg Tab*) 12.5 mg PO BID WITH MEALS [facility] Last Admin: 07/07/18 08:17 Dose: 12.5 mg Colchicine (Colcrys*) 0.6 mg PO DAILY PRN PRN Reason: RASH Cyclobenzaprine HCl (Flexeril Tab*) 10 mg PO TID PRN PRN Reason: SPASMS Last Admin: 07/05/18 14:08 Dose: 10 mg Dextrose (D50w Syringe 50 Ml*) 12.5 gm IV PUSH .FOR FS < 60 - SS PRN PRN Reason: FS < 60 Dextrose (D50w Syringe 50 Ml*) 12.5 gm IV PUSH .FOR FS < 60 - SS PRN PRN Reason: FS < 60 Diphenhydramine HCl (Benadryl Iv*) 12.5 mg IV Q6H PRN PRN Reason: PRURITIS Docusate Sodium (Colace Cap*) 100 mg PO BID [facility] Last Admin: 07/07/18 08:11 Dose: Not Given Gabapentin (Neurontin Cap(*)) 400 mg PO QID [facility] Last Admin: 07/07/18 08:14 Dose: 400 mg Hydralazine HCl (Apresoline Tab*) 25 mg PO TID [facility] Last Admin: 07/07/18 08:14 Dose: 25 mg Lactated Ringer's (Lactated Ringers 1000 Ml Bag*) 1,000 mls @ 100 mls/hr IV PER RATE [facility] Last Admin: 07/06/18 09:45 Dose: 100 mls/hr Insulin Glargine (Lantus(*)) 48 units SUBCUT BID [facility] Insulin Human Lispro (Humalog*) 0 units SUBCUT ACHS [facility]; Protocol Last Admin: 07/07/18 08:12 Dose: 6 units Insulin Human Lispro (Humalog*) 8 units SUBCUT AC [facility] Lactulose (Lactulose*) 30 ml PO Q6H PRN PRN Reason: constipation Losartan Potassium (Cozaar Tab*) 25 mg PO DAILY [facility] Last Admin: 07/07/18 08:14 Dose: 25 mg Magnesium Hydroxide (Milk Of Magnesia Liq*) 30 ml PO BID [facility] Last Admin: 07/07/18 08:36 Dose: Not Given Magnesium Hydroxide (Milk Of Magnesia Liq*) 30 ml PO Q6H PRN PRN Reason: constipation Morphine Sulfate (Morphine 4 Mg/Ml Vial (1 Ml)) 2 mg IV Q2H PRN PRN Reason: PAIN Ondansetron HCl (Zofran Inj*) 4 mg IV Q6H PRN PRN Reason: nausea Ondansetron HCl (Zofran Tab*) 4 mg PO Q6H PRN PRN Reason: NAUSEA Oxycodone HCl (Roxycodone Tab*) 10 mg PO Q4H PRN PRN Reason: SEVERE PAIN Last Admin: 07/07/18 07:20 Dose: 10 mg Oxycodone/Acetaminophen (Percocet 5/325 Tab*) 1 tab PO Q4H PRN PRN Reason: PAIN Last Admin: 07/05/18 12:06 Dose: 1 tab Oxycodone/Acetaminophen (Percocet 5/325 Tab*) 2 tab PO Q4H PRN PRN Reason: PAIN Pantoprazole Sodium (Protonix Tab*) 40 mg PO DAILY JO[facility] Last Admin: 07/07/18 08:14 Dose: 40 mg Polyethylene Glycol/Electrolytes (Miralax*) 17 gm PO DAILY PRN PRN Reason: Constipation Tramadol HCl (Ultram*) 50 mg PO Q6H PRN PRN Reason: PAIN Vital Signs - 8 hr 07/07/18 07/07/18 07/07/18 07:20 07:54 08:00 Temperature 97.9 F Pulse Rate 75 Respiratory 18 18 18 Rate Blood Pressure 145/61 (mmHg) O2 Sat by Pulse 98 98 Oximetry 07/07/18 07/07/18 07/07/18 08:14 09:59 11:05 Temperature Pulse Rate Respiratory 18 18 20 Rate Blood Pressure (mmHg) O2 Sat by Pulse Oximetry Oxygen Devices in Use Now: None Result Diagrams: 07/07/18 05:55 07/07/18 05:55 Microbiology and Other Data: Microbiology 07/05/18 10:15 Gram Stain - Final Knee Left Assess/Plan/Problems-Billing Assessment: - Patient Problems (1) Surgery, elective Current Visit: Yes Status: Acute Code(s): Z41.9 - ENCNTR FOR PROC FOR PURPOSE OTH THAN [facility] SNOMED Code(s): 724051666 Comment: #S/P L. 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 SNOMED Code( s): 96418648 Comment: -Uncontrolled -Increase Lantus to 48 units SQ BID and will add 8 units qAC of Lispro -Continue ISS -Continue to monitor FS (3) HTN (hypertension) Current Visit: Yes Status: Acute Code(s): I10 - ESSENTIAL (PRIMARY) HYPERTENSION SNOMED Code(s): 34679890 Comment: -Stable; relatively well-controlled -Will modify diet for low sodium -Continue Amlodipine, Carvedilol, Hydralazine, and Losartan (4) Acute on chronic renal insufficiency Current Visit: Yes Status: Acute Code(s): N28.9 - DISORDER OF KIDNEY AND URETER, UNSPECIFIED; N18.9 - CHRONIC KIDNEY DISEASE, UNSPECIFIED SNOMED Code(s ): 493736485 Comment: -Slightly worsened -FE-Urea = 38.43%; low end range of intra-renal cause and may have improved w/ IVFs? -Will await result of renal U/S -Continue LR -I/Os in the positives -Continue IVF and watchful waiting at this time -Continue watchful waiting (5) DVT prophylaxis Current Visit: Yes Status: Acute Code(s): [id number] - SNOMED Code(s): 573576352 Comment: -Continue Eliquis; lulu given previous hx of DVT Status and Disposition: -Defer with ortho (outpt PT?)
[2018-07-07] MEDS: Atorvastatin* 10 MG TAB PO SCH (20:06)
[2018-07-07] MEDS ORDERED: Insulin GLARGINE(*) 1 UNITS UNIT SUBCUT SCH (21:00)
[2018-07-08] MEDS: oxyCODONE TAB* 5 MG TAB PO PRN ×2 (05:13→09:27)
[2018-07-08] MEDS: Acetaminophen TAB* 325 MG PO SCH (05:56)
[2018-07-08 06:41] LABS: Hematocrit 31 % (36-46); Hemoglobin 9.9 g/dL (14.0-18.0); Mean Platelet Volume 10.1 fL (7.4-10.4); Platelet Count 142 10^3/uL (150-450)
--- NOTE | 2018-07-08 07:39 | DS ---
Orthopedic Discharge Summary - Discharge Summary Date of Admission:07/05/18 Date of Discharge: 07/08/18 Date of Surgery: 07/05/18 Attending Orthopedic Provider: Dr Gimenez Pre-operative Diagnosis: Left knee osteoarthritis Operative Procedure: [left total knee revision of patellar component ] Condition of Patient: [stable] History: CODY SARABIA is a 68 year old M with years of increasingly severe [left knee] pain. Patient has failed conservative management and has elected to undergo a revision of [left] total [] replacement patellar component Hospital Course: CODY was admitted to [facility] on 07/05/18. Patient underwent a [left total knee revision of patellar component ] without complication followed by a brief recovery in PACU and transfer to the Short Stay Surgical Unit in stable condition. Our hospitalist service, physical therapy and occupational therapy also participated in this patients care. Post- op day 1: patient was alert and in no acute distress. Dressing was clean, dry and intact. Operative extremity dorsiflexion and plantarflexion intact, sensation intact to light touch distally, DP2+. Post-op day two: dressing was changed, incision was clean, dry and intact. POD3 incision CDI, ambulating well with PT, deemed to be medically and orthopedically stable for discharge home. Physical therapy goals were met. Discharge medications Aspirin EC TAB* [Ecotrin EC Low Dose 81 MG*] 81 mg PO QPM 01/31/12 [History Confirmed 07/04/18] Zolpidem TAB* [Ambien*] 10 mg PO BEDTIME PRN 01/31/12 [History Confirmed ] hydrALAZINE TAB* [Apresoline TAB*] 25 mg PO TID 01/31/12 [History Confirmed 02/11] Gabapentin CAP(*) [Neurontin 400 mg CAP(*)] 400 mg PO QID MDD 2800 mg 03/04/14 [ History Confirmed 06/25/18] Simvastatin TAB(NF) [Zocor 20 MG (NF)] 20 mg PO BEDTIME 03/04/14 [History Confirmed 06/25/18] Furosemide TAB* [Lasix TAB*] 40 mg PO DAILY PRN 09/25/15 [History Confirmed 02/11] HOLD your lasix for 2 days restart 07/10/18 Omeprazole CAP (NF) [Prilosec CAP* 20 MG] 20 mg PO DAILY 09/25/15 [History Confirmed 06/25/18] Carvedilol TAB* [Coreg TAB*] 12.5 mg PO BID WITH MEALS 03/30/16 [History Confirmed 07/04/18] Losartan TAB* [Cozaar TAB*] 25 mg PO DAILY 03/30/16 [History Confirmed 07/05/18] Albuterol HFA INHALER* [Ventolin HFA Inhaler*] 2 puff INH Q4H PRN 01/19/17 [ History Confirmed 06/25/18] Amlodipine Besylate [Norvasc] 10 mg PO QAM 06/25/18 [History Confirmed 07/04/18] Colchicine* [Colcrys*] 0.6 mg PO DAILY PRN 06/25/18 [History Confirmed 07/05/18] Acetaminophen TAB* [Tylenol TAB*] 975 mg PO Q8HR tab 07/08/18 [Rx] Apixaban* [Eliquis*] 2.5 mg PO BID 30 Days #60 tab 07/08/18 [Rx] Docusate CAP* [Colace Cap*] 100 mg PO BID #90 cap 07/08/18 [Rx] Insulin GLARGINE(*) [Lantus(*)] 40 units SUBCUT BID unit 07/08/18 [Rx] Insulin LISPRO* [HumaLOG*] 4 units SUBCUT AC unit 07/08/18 [Rx] oxyCODONE TAB* [Roxycodone TAB 5 mg*] 10 mg PO Q4H PRN #60 tab MDD 10 07/08/18 [ Rx] Discharge Instructions following Orthopedic Surgery: Activity: * Weight Bearing as tolerated * Continue physical therapy and occupational therapy exercises as shown * Home physical therapy Wound care: * OK to shower on post-op day 3, no bathing, swimming, or submerging wound. * Use gentle soap, pat dry. Cover with gauze, RAÚL wrap or tape. * Visiting home nurse to do wound checks. Call Orthopedic office for: * Increased drainage * Redness * Increased pain * Fever Go to ER with shortness of breath or chest pain. Diet: * Regular diet * Increase fluids and fiber to prevent constipation. * Continue to use stool softeners, call office if no bowel motion within 48 hours. Medications See Home Medication List in your packet for medications that you should take after discharge. DVT Prophylaxis Eliquis Dosin.5 mg, 1 tab every 12 hours x 30 days. This medication increases bleeding tendency Pain Control: Oxycodone 5mg tabs, take 1-2 tabs by mouth every 4-6 hours as needed for pain. Maximum of 10 tabs per day. Hold for sedation. Maximum daily dose of Tylenol is 4000 mg from all sources. Lab draw for BMP in 3 days Renal Cyst: In 3 days Please follow up with your PCP regarding presence of a renal cyst found on ultrasound Renal Impairment: in 3 days Please follow up with your PCP regarding acute on chronic renal insufficiency Diabetes: Dosing adjusted to Lantus 40 units twice daily AND Lispro 4 units before meals. Please continue to monitor your sugar at home Antibiotics are required prior to any dental work. FOLLOW UP: Follow up with [Pernell] Within 10-14 days, call for appointment Please call our office with any questions or concerns ([phone])
[2018-07-08] MEDS: Losartan TAB* 25 MG PO SCH (08:12)
[2018-07-08] MEDS: Docusate CAP* 100 MG PO SCH (08:12)
[2018-07-08] MEDS: Apixaban* 2.5 MG TAB PO SCH (08:12)
[2018-07-08] MEDS: Pantoprazole TAB * 40 MG TAB PO SCH (08:13)
[2018-07-08] MEDS: hydrALAZINE TAB* 25 MG PO SCH (08:13)
[2018-07-08] MEDS: Gabapentin CAP(*) 400 MG PO SCH ×2 (08:13→13:03)
[2018-07-08] MEDS: amLODIPine TAB* 5 MG PO SCH (08:13)
[2018-07-08] MEDS: Insulin LISPRO* 1 UNITS UNIT SUBCUT SCH ×4 (08:14→13:03)
[2018-07-08] MEDS: Insulin GLARGINE(*) 1 UNITS UNIT SUBCUT SCH (08:14)
[2018-07-08] MEDS: Carvedilol TAB* 6.25 MG PO SCH (08:19)
[2018-07-08] MEDS: Magnesium Hydroxide LIQ* 30 ML UDC PO SCH (08:20)
[2018-07-08] MEDS: Albuterol HFA INHALER* 8 gm MDI INH PRN (09:42)
--- NOTE | 2018-07-08 10:16 | PN ---
Progress Note - Progress Note Date of Service: 07/08/18 SOAP: Subjective: []Pt seen at bedside he is feeling well. Denies CP, SOB, dizziness, nausea. Objective: []General: Appears well, NAD LLE: Left knee dressing changed, incision CDI. Thigh is soft, DF/PF intact, DP2+ , sensation intact to light touch distally Calves supple and nontender without erythema, edema or palpable cords Assessment: [] 68 yo M pod 3 s/p revision LTKA - patellar component with wide scar excision Plan: wbat lle eliquis for DVT prophylaxis DC home today Awiating BMP Discussed with medicine patient is ready for DC as long as renal fx not worsening when BMP returns, Will need PCP FU in 3 days for DM2, renal cyst, renal impairment, hold lasix for 2 more days Vital Signs Temp 97.9 F 07/08/18 07:43 Pulse 74 07/08/18 07:43 Resp 20 07/08/18 09:27 BP 149/69 07/08/18 07:43 Pulse Ox 97 07/08/18 07:43 Intake & Output 07/07/18 07/08/18 07/08/18 18:59 06:59 18:59 Intake Total 1800 800 360 Output Total 400 850 475 Balance 1400 -50 -115 Intake: Oral 1800 800 360 Output: Urine 400 850 475 Other: Estimated Void Large Large # Bowel Movements 1 0 Estimated Stool Amount Large # Voids 1 1 Laboratory Last Values Hgb 9.9 g/dL (14.0-18.0) L 07/08/18 05:50 Hct 31 % (36-46) L 07/08/18 05:50 Plt Count 142 10^3/uL (150-450) L 07/08/18 05:50 MPV 10.1 fL (7.4-10.4) 07/08/18 05:50 Sodium 137 mmol/L (135-145) 07/07/18 05:55 Potassium 4.1 mmol/L (3.5-5.0) 07/07/18 05:55 Chloride 105 mmol/L (101-111) 07/07/18 05:55 Carbon Dioxide 25 mmol/L (22-32) 07/07/18 05:55 Anion Gap 7 mmol/L (2-11) 07/07/18 05:55 BUN 46 mg/dL (6-24) H 07/07/18 05:55 Creatinine 2.03 mg/dL (0.67-1.17) H 07/07/18 05:55 Est GFR ( Amer) 39.7 (>60) 07/07/18 05:55 Est GFR (Non-Af Amer) 32.8 (>60) 07/07/18 05:55 BUN/Creatinine Ratio 22.7 (8-20) H 07/07/18 05:55 Glucose 196 mg/dL (70-100) H 07/07/18 05:55 POC Glucose (mg/dL) 173 mg/dL (70-100) H 07/08/18 07:25 Calcium 7.9 mg/dL (8.6-10.3) L 07/07/18 05:55 Ionized Calcium 1.05 mmol/L (1.16-1.32) L 07/07/18 05:55 Phosphorus 3.5 mg/dL (2.5-5.0) 07/07/18 05:55 Magnesium 1.9 mg/dL (1.9-2.7) 07/07/18 05:55 Total Bilirubin 0.30 mg/dL (0.2-1.0) 07/07/18 05:55 AST 59 U/L (13-39) H 07/07/18 05:55 ALT 21 U/L (7-52) 07/07/18 05:55 Alkaline Phosphatase 68 U/L (34-104) 07/07/18 05:55 Total Protein 6.0 g/dL (6.4-8.9) L 07/07/18 05:55 Albumin 3.5 g/dL (3.2-5.2) 07/07/18 05:55 Globulin 2.5 g/dL (2-4) 07/07/18 05:55 Albumin/Globulin Ratio 1.4 (1-3) 07/07/18 05:55 Ur Creatinine Concen 86.70 mg/dL 07/07/18 11:00 U Sodium Concentration 36 mmol/L 07/07/18 11:00 Ur Urea Nitrogen Conc 755 mg/dL 07/07/18 11:00
[2018-07-08 11:36] VITALS: BP 152/68
[2018-07-08 11:39] LABS: Potassium 4.3 mmol/L (3.5-5.0)
[2018-07-08 11:44] LABS: BUN/Creatinine Ratio 21.7 (8-20); EGFR African American 35.1 (>60)
--- NOTE | 2018-07-08 15:33 | PN ---
Subjective Date of Service: 07/08/18 Interval History: Pt seen and examined. Meds and labs reviewed. CC: N/A ROS: Denied SCRUGGS/dizziness, F/C, N/V, CP, SOB, increased cough, sputum production , abd pain, diarrhea, constipation, dysuria, myalgias, arthralgias, throat pain , and new skin lesions. The rest of the 14 point ROS are unremarkable. PHYSICAL EXAM: GEN APPEARANCE: Awake, not in acute distress HEENT: NC/AT, PERRLA, moist oral mucosa, (-) throat erythema, (+)dry oral mucosa NECK: Soft, supple, (-) cervical LAD, (-)JVD HEART: S1S2 WNL, RRR, No MRG CHEST: CTA, BL, GAE, No W/R/R ABD: Soft, ND/NT, NABS 4x Q EXT: No C/C/LLE cdi SKIN: Warm to touch PSYCH: No active psychosis, hallucinations, depression, SI/HI Objective Vital Signs - 8 hr 07/08/18 07/08/18 07/08/18 07:43 08:13 08:20 Temperature 97.9 F Pulse Rate 74 Respiratory 18 20 18 Rate Blood Pressure 149/69 (mmHg) O2 Sat by Pulse 97 Oximetry 07/08/18 07/08/18 07/08/18 09:27 10:58 11:36 Temperature 98.3 F Pulse Rate 80 Respiratory 20 18 18 Rate Blood Pressure 152/68 (mmHg) O2 Sat by Pulse 97 Oximetry 07/08/18 07/08/18 12:08 13:03 Temperature Pulse Rate Respiratory 20 20 Rate Blood Pressure (mmHg) O2 Sat by Pulse Oximetry Oxygen Devices in Use Now: None Result Diagrams: 07/08/18 05:50 07/08/18 11:08 Microbiology and Other Data: Microbiology 07/05/18 10:15 Gram Stain - Final Knee Left Assess/Plan/Problems-Billing Assessment: - Patient Problems (1) Surgery, elective Status: Acute Code(s): Z41.9 - ENCNTR FOR PROC FOR PURPOSE OTH THAN [facility] SNOMED Code(s): 554376333 Comment: #S/P L. 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 SNOMED Code(s): 92569845 Comment: -Improved control -Decreased lantus back but pt likely to do better mirroring physiologic insulin secretion w/pre-meal insulin as currently orderedd/w Cristal -Continue ISS -Continue to monitor FS (3) HTN (hypertension) Status: Acute Code(s): I10 - ESSENTIAL (PRIMARY) HYPERTENSION SNOMED Code(s) : 87134645 Comment: -Stable; relatively well-controlled -Will modify diet for low sodium -Continue Amlodipine, Carvedilol, Hydralazine, and hold losartan for 2 more days along with Lasixd/w Cristal (4) Acute on chronic renal insufficiency Status: Acute Code(s): N28.9 - DISORDER OF KIDNEY AND URETER, UNSPECIFIED; N18.9 - CHRONIC KIDNEY DISEASE, UNSPECIFIED SNOMED Code(s): 845144268 Comment: -Slightly worsened -FE-Urea = 38.43%; low end range of intra-renal cause and may have improved w/ IVFs? -Will await result of renal U/S -Continue LR -I/Os in the positives -Continue IVF and watchful waiting at this time -Continue watchful waiting -To F/U w/PCP within 3 days to monitor renal functionsd/w Cristal (5) DVT prophylaxis Status: Acute Code(s): SIU7817 - SNOMED Code(s): 275541248 Comment: -Continue Eliquis; lulu given previous hx of DVT Status and Disposition: -Defer with ortho (outpt PT?); for planned D/C today
--- NOTE | 2018-07-11 22:15 | OP ---
DATE OF OPERATION: 07/05/18 - ROOM #[id number] DATE OF : 50 SURGEON: Vanita Gimenez MD ANESTHESIA: General. PRE-OP DIAGNOSIS: Painful left total knee arthroplasty, patellofemoral arthritis. POST-OP DIAGNOSIS: Painful left total knee arthroplasty, patellofemoral arthritis with wide arthrofibrosis and scar formation. OPERATIVE PROCEDURE: Revision left total knee arthroplasty - patellar component with a wide scar excision. SPECIMEN: Multiple culture swabs sent to microbiology. COMPLICATIONS: None. TOURNIQUET TIME: 20 minutes. ESTIMATED BLOOD LOSS: 100 cc. HARDWARE USED: A [employer] 32 3-peg all poly patella was used. BRIEF HISTORY/INDICATION: Mr. Harrison is a 68-year-old gentleman who had October 2017 left total knee arthroplasty with an outside surgeon. His patella was not resurfaced. He went on to have continued increased severe pain that was patellofemoral pain and diffuse joint line pain. A workup for infection was negative. I saw the patient and did feel that he had patellofemoral pain as well as some arthritis. I agreed to perform revision left total knee arthroplasty. He understood I would check his femoral and tibial implants, obtain some cultures, resurface the patella and likely excise some scar tissue. Informed consent was obtained from the patient. He understood the risks of surgery included, but were not limited to bleeding, infection, damage to nearby structures, continued pain, need for further surgery, intra-operative fracture, nerve palsy, hardware failure or loosening, stroke, heart attack, blood clot, and . He wished to proceed. INTRAOPERATIVE FINDINGS: Intraoperatively, there was no obvious purulence. The femoral and tibial components were not malaligned to the naked eye. They were not visibly loose. There was significant scar tissue throughout the medial and lateral gutter and suprapatellar pouch. Patella had significant arthritis with chondromalacia and exposed subchondral bone along the medial patellar facet. DESCRIPTION OF PROCEDURE: Mr. Harrison was identified in the preanesthesia unit. His left lower extremity was marked as the correct operative side. Informed consent was signed and placed in the chart. The patient was taken to the operating room and placed under general anesthesia. Tourniquet was placed on the left thigh. Left lower extremity was prepped and draped in the usual sterile fashion. Preop time-out was made to correctly identify the patient's side and site. Appropriate perioperative antibiotics were given within 1 hour of incision. The patient's prior incision was used. This was opened with a 10 blade. Dissection was carried down to the extensor mechanism. A new 10 blade was used to make a standard medial parapatellar arthrotomy. Multiple culture swabs were used to collect joint fluid and these were sent to microbiology. There was no obvious purulence. There was extensive scar formation in the medial and lateral gutters in suprapatellar region as well as the infrapatellar fat pad region. Electrocautery was used to perform wide scar excision. Dissection was carried out in the infrapatellar region, suprapatellar region and both gutters. Once the scar tissue was carefully excised, the femoral and tibial implants were checked. There was no abnormal wear on he polyethylene. Femoral and tibial implants had no visible loosening. There was no visible malalignment. Attention was turned to resurfacing the patella. The patella had significant cartilage loss. Oscillating saw was used to remove the appropriate amount of bone and cartilage from the patella. Patella was sized to a size 32. Three peg -holes were drilled to the size 32 guide. A 32 trial patella was placed and the knee was taken through a range of motion. There was satisfactory patellofemoral tracking. The bone was copiously irrigated and dried. The final implant was cemented into place using Simplex bone cement. Once the cement had fully cured, the patellar clamp was removed. The knee was copiously irrigated with sterile saline. The extensor mechanism was closed using interrupted #1 Vicryls. The rest of the incision was closed in a layered fashion using 0 and 2 -0 Vicryls. Skin was closed using running 3-0 nylon suture. The patient's anesthesia was reversed without difficulty. He was taken to the PACU in stable condition. Intended weight bearing will be weightbearing as tolerated. Intended DVT prophylaxis will be Eliquis. [id number]/[facility] #: [id number] DUANE
== END 2018-07-08 13:15 | disposition home or self-care (01) | DRG 467 ==
LOC: AA 06:01 → SSU 10:07
PROVIDERS: ADMIT Orthopaedic Surgery Adult Reconstructive Orthopaedic Surgery; ATTEND Orthopaedic Surgery Adult Reconstructive Orthopaedic Surgery
PROC: 0SWD0JC Revision of Synthetic Substitute in Left Knee Joint, Patellar Surface, Open Approach (ICD-10-PCS; principal; 2018-07-05 09:00)
DX: T84.84XA Pain due to internal orthopedic prosthetic devices, implants and grafts, initial encounter (principal); I50.32 Chronic diastolic (congestive) heart failure; Y79.2 Prosthetic and other implants, materials and accessory orthopedic devices associated with adverse incidents; N28.1 Cyst of kidney, acquired; E78.00 Pure hypercholesterolemia, unspecified; M10.9 Gout, unspecified; F32.9 Major depressive disorder, single episode, unspecified; F41.9 Anxiety disorder, unspecified; I25.10 Atherosclerotic heart disease of native coronary artery without angina pectoris; K21.9 Gastro-esophageal reflux disease without esophagitis; M25.462 Effusion, left knee; G47.00 Insomnia, unspecified; G89.29 Other chronic pain; I11.0 Hypertensive heart disease with heart failure; E11.42 Type 2 diabetes mellitus with diabetic polyneuropathy; Z96.653 Presence of artificial knee joint, bilateral; B18.2 Chronic viral hepatitis C; Z95.5 Presence of coronary angioplasty implant and graft; Z89.432 Acquired absence of left foot; Z90.49 Acquired absence of other specified parts of digestive tract; Z88.8 Allergy status to other drugs, medicaments and biological substances; Z86.718 Personal history of other venous thrombosis and embolism; Y92.9 Unspecified place or not applicable; Z79.82 Long term (current) use of aspirin; Z79.4 Long term (current) use of insulin; Z80.9 Family history of malignant neoplasm, unspecified; Z72.89 Other problems related to lifestyle; Z86.010 Personal history of colon polyps; I25.2 Old myocardial infarction; Z83.49 Family history of other endocrine, nutritional and metabolic diseases; Z83.3 Family history of diabetes mellitus; Z87.891 Personal history of nicotine dependence
CPT/HCPCS: 36415; 76775; 80048; 80053; 82330; 82570; 82947; 83735; 84100; 84300; 84540; 85014; 85018; 85049; 87070; 87073; 87205; 88304; 88311; 90732; A9270-GY; C1776; G8978-GP-CJ; G8979-GP-CI; J0330; J0610; J0690; J1100; J1170; J1240; J1885; J2250; J2405; J2704; J2795; J3010; J3490

== ENCOUNTER 2018-11-30 17:51 | Emergency (ER) | payer MEDICARE ==
--- OUTSIDE RECORDS SUMMARY | 2018-11-30 18:05 | XMS REPORT | Continuity of Care Document ---
:1950 External Reference #:[id number] Author Name Vanita Gimenez M.D. (transmitted by agent of provider Carmelina Mendoza) Address [address] [place] [address] Care Team Providers Name Role Phone Fred Hoffman MD - Internal Medicine Care Team Information Day Care Supervisor [phone] Problems Active Problems Provider Date Coronary arteriosclerosis Belkys Villanueva M.D. Onset: 04/14/2011 Electrocardiogram abnormal Belkys Villanueva M.D. Onset: 04/14/2011 Hyperlipidemia Belkys Villanueva M.D. Onset: 04/14/2011 Patient post percutaneous transluminal Belkys Villanueva M.D. Onset: coronary angioplasty Chest pain Belkys Villanueva M.D. Onset: 04/14/2011 Arteriosclerosis of autologous vein Belkys Villanueva M.D. Onset: 2011 coronary artery bypass graft Benign essential hypertension Belkys Villanueva M.D. Onset: 05/02/2011 Type II diabetes mellitus uncontrolled Belkys Villanueva M.D. Onset: Morbid obesity Belkys Villanueva M.D. Onset: 04/19/2012 Anemia Belkys Villanueva M.D. Onset: 04/19/2012 Palpitations Belkys Villanueva M.D. Onset: 05/06/2013 Disturbance in sleep behavior Gayle Stafford MD Onset: 08/04/2014 Obesity Gayle Stafford MD Onset: 08/04/2014 Essential hypertension Gayle Stafford MD Onset: 08/04/2014 Type 2 diabetes mellitus Gayle Stafford MD Onset: 08/04/2014 Transient cerebral ischemia Gayle Stafford MD Onset: 08/04/2014 Obstructive sleep apnea syndrome Gayle Stafford MD Onset: 10/27/2014 Sprain of shoulder and upper arm Maine Casillas MD Onset: 02/22/2016 Injury of shoulder region Maine Casillas MD Onset: 03/07/2016 Full thickness rotator cuff tear Maine Casillas MD Onset: 06/29/2016 Bicipital tenosynovitis Maine Casillas MD Onset: 09/15/2016 Developmental dislocation of joint of Maine Casillas MD Onset: 09/15/2016 shoulder region Strain of muscle(s) and tendon(s) of Maine Casillas MD Onset: 11/30/2016 the rotator cuff of left shoulder, subsequent encounter Unspecified injury of muscle, fascia Maine Casillas MD Onset: 03/13/2017 and tendon of long head of biceps, left arm, subsequent encounter Incomplete rotator cuff tear or rupture Maine Casillas MD Onset: 03/13/2017 of left shoulder, not specified as traumatic Arthralgia of the ankle and/or foot Maine Casillas MD Onset: 05/31/2017 Arthroplasty of knee Vanita Gimenez M.D. Onset: 05/27/2018 Localized, primary osteoarthritis Vanita Gimenez M.D. Onset: 05/27/2018 Derangement of knee Vanita Gimenez M.D. Onset: 05/27/2018 Social History Type Date Description Comments Sex Unknown Cigarette Use Quit 3 Years Ago ETOH Use Occasional alcohol use Recreational Drug Use Denies Drug Use Tobacco Use Start: Unknown End: Patient is a former Quit January 2012 Unknown smoker Smoking Status Reviewed: 11/15/18 Patient is a former Quit January 2012 smoker Exercise Type/Frequency Exercises regularly Allergies, Adverse Reactions, Alerts Active Allergies Reaction Severity Comments Date Effexor unknown 10/15/2014 Inactive Allergies NKDA 08/10/2010 Medications Active Medications SIG Qnty Indications Ordering Provider Date Carvedilol 1 by mouth twice Unknown 08/03/2014 12.5mg a day Tablets Flovent HFA inhale 1 puff by Unknown 08/03/2014 220mcg/Act mouth twice a day Aerosol Furosemide 1 by mouth every Unknown 08/03/2014 40mg Tablets day as needed for leg swelling Blood Glucose Test tid as directed Unknown 08/03/2014 Strips Losartan Potassium 1 by mouth every 90tabs Qutaybtamara SDang 02/04/2014 25mg day Jun Villanueva Tablets Hydralazine HCL 1 po tid 90tabs Unknown 25mg Tablets Neurontin 1 tab tid to qid Unknown 400mg Capsules Aspirin 1 po qd Unknown 81mg Tablets Simvastatin 1 po qd Unknown 20mg Tablets Lantus 100U/ML as directed at Unknown 50U-100U bedtime beneath the skin Zolpidem Tartrate 1 tab po qhs prn 14tabs Unknown 10mg Tablets Omeprazole Unknown 20mg Capsules DR Naproxen Unknown 500mg Tablets Humalog Kwikpen Unknown 100Unit/ML Solution Pen-Inject Colchicine Fred Hoffman MD 0.6mg Capsules Amlodipine Besylate Fred Hoffman MD 5mg Tablets Immunizations Description No Information Available Vital Signs Date Vital Result Comment 11/15/2018 10:04am Height 68 inches 5'8" Weight 331.00 lb Heart Rate 88 /min BP Systolic 128 mmHg BP Diastolic 76 mmHg Pain Level 0 BMI (Body Mass Index) 50.3 kg/m2 08/16/2018 10:22am Height 68 inches 5'8" Weight 329.00 lb BP Systolic 160 mmHg BP Diastolic 82 mmHg Body Temperature 97.7 F BMI (Body Mass Index) 50.0 kg/m2 Results Test Date Facility Test Result H/L Range Note CBC Auto 06/24/2018 [facility] White Blood 7.8 10^3/uL Normal 3.5-10.[address] [place] [address] [phone] Red Blood Count 5.00 10^6/uL Normal 4.18-5.48 Hemoglobin 12.1 g/dL Low 14.0-18.0 Hematocrit 38 % Normal 36-46 Mean Corpuscular Volume 75 fL Low 80-94 Mean Corpuscular Hemoglobin 24 pg Low 27-31 Mean Corpuscular HGB Conc 32 g/dL Normal 31-36 Red Cell Distribution Width 15 % Normal 10.5-15 Platelet Count 171 10^3/uL Normal 150-450 Mean Platelet Volume 10.1 fL Normal 7.4-10.4 Abs Neutrophils 5.3 10^3/uL Normal 1.5-7.7 Abs Lymphocytes 1.5 10^3/uL Normal 1.0-4.8 Abs Monocytes 0.7 10^3/uL Normal 0-0.8 Abs Eosinophils 0.2 10^3/uL Normal 0-0.6 Abs Basophils 0.1 10^3/uL Normal 0-0.2 Abs Nucleated RBC 0 10^3/uL Granulocyte % 67.8 % Lymphocyte % 19.6 % Monocyte % 9.1 % Eosinophil % 2.7 % Basophil % 0.8 % Nucleated Red Blood Cells % 0.3 Urinalysis Profile 06/24/2018 [facility] Urine Color Yellow [address] [place] [address] [phone] Urine Appearance Cloudy Urine Specific [place] 1.012 Normal 1.010-1.030 Urine pH 5.0 Normal 5-9 Urine Urobilinogen Negative Negative Urine Ketones Negative Negative Urine Protein 2+(100 mg/dL) Abnormal Negative Urine Leukocytes Negative Negative Urine Blood 1+ Abnormal Negative Urine Nitrite Negative Negative Urine Bilirubin Negative Negative Urine Glucose 1+(50 mg/dL) Abnormal Negative Urine White Blood Cell Trace(0-5/hpf) Absent Urine Red Blood Cell Trace(0-2/hpf) Absent Urine Bacteria Absent Absent Urine Squamous Epithelial Cell Present Abnormal Absent Type & Screen 06/24/2018 [facility] Patient Blood Type A Positive [address] [place] [address] [phone] Antibody Screen NEGATIVE Comp Metabolic 06/24/2018 [facility] Sodium 140 mmol/L Normal 135-[address] [place] [address] [phone] Potassium 4.3 mmol/L Normal 3.5-5.0 Chloride 104 mmol/L Normal 101-111 Co2 Carbon Dioxide 26 mmol/L Normal 22-32 Anion Gap 10 mmol/L Normal 2-11 Glucose 230 mg/dL High 70-100 Blood Urea Nitrogen 25 mg/dL High 6-24 Creatinine 1.87 mg/dL High 0.67-1.17 BUN/Creatinine Ratio 13.4 Normal 8-20 Calcium 8.9 mg/dL Normal 8.6-10.3 Total Protein 7.0 g/dL Normal 6.4-8.9 Albumin 4.2 g/dL Normal 3.2-5.2 Globulin 2.8 g/dL Normal 2-4 Albumin/Globulin Ratio 1.5 Normal 1-3 Total Bilirubin 0.30 mg/dL Normal 0.2-1.0 Alkaline Phosphatase 86 U/L Normal 34-104 Alt 25 U/L Normal 7-52 Ast 25 U/L Normal 13-39 Egfr Non- 36.1 >60 Egfr 43.7 >60 1 Inr/Protime 06/24/2018 [facility] Inr 0.90 Normal 0.77-1.[address] [place] [address] [phone] Laboratory test 06/24/2018 [facility] Partial 27.6 Normal 26.0 -36.[address] [place] [address] Time PTT [phone] Urine Culture And 06/24/2018 [facility] Urine SEE RESULT [address] Culture BELOW [place], [place] [id number] [phone] 1 Because ethnic data is not always readily available, this report includes an eGFR for both -Americans and non- Americans. The National Kidney Disease Education Program (NKDEP) does not endorse the use of the MDRD equation for patients that are not between the ages of 18 and 70, are , have extremes of body size, muscle mass, or nutritional status, or are non- or non-. According to the National Kidney Foundation, irrespective of diagnosis, the stage of the disease is based on the level of kidney function: Stage Description GFR(mL/min/1.73 m(2)) 1 Kidney damage with normal or decreased GFR 90 2 Kidney damage with mild decrease in GFR 60-89 3 Moderate decrease in GFR 30-59 4 Severe decrease in GFR 15-29 5 Kidney failure <15 (or dialysis) 2 SEE RESULT BELOW Name: MARIAH SARABIA : [address]: Vanita Gimenez MD Acct: [id number] Unit: [id number] AGE: 68 Location: [facility] Re06/24/18 SEX: M Status: REG REF SPEC: [id number] LESTER: 06/24/18-[address] [facility] [address]: Vanita Gimenez MD REQ: [id number] RECD: 06/24/18 STATUS: KAREN QUEEN DR: Fred Hoffman MD _ SOURCE: URINE SPDESC: ORDERED: Urine Culture QUERIES: Urine Source: Clean Catch Procedure Result Reported Site Urine Culture Final 06/25/18- 1244 ML No Growth (<1,000 CFU/mL) * ML - Main Lab . END OF REPORT DEPARTMENT OF PATHOLOGY, [address] [place] [address] Victor Manuel Kohler M.D. Director [facility] # [id number] Procedures Date Code Description Status 07/05/2018 30791 Revise Total Knee Arthroplasty One Component Completed Medical Devices Description No Information Available Encounters Type Date Location Provider Dx Diagnosis Office Visit 07/08/2018 [facility] Gary Segovia Z96.652 Presence of left 9:00a sergey William MD artificial knee [facility]ists joint I10 Essential (primary) hypertension E11.22 Type 2 diabetes mellitus w diabetic chronic kidney disease N18.9 Chronic kidney disease, unspecified Z79.4 MCC (current) use of insulin Office Visit 07/07/2018 [facility] Gary Segovia Z96.652 Presence of left 9:00a sergey William MD artificial knee [facility] I10 Essential (primary) hypertension E11.22 Type 2 diabetes mellitus w diabetic chronic kidney disease N18.9 Chronic kidney disease, unspecified Office Visit 07/06/2018 [facility] Gary Segovia Z96.652 Presence of left 8:59a sergey William MD artificial knee [facility] N18.9 Chronic kidney disease, unspecified E11.22 Type 2 diabetes mellitus w diabetic chronic kidney disease Office Visit 07/05/2018 [facility] Meg Z96.652 Presence of left 8:59a sergey William PA-C artificial knee [facility] I10 Essential (primary) hypertension E11.9 Type 2 diabetes mellitus without complications Office Visit 05/27/2018 8:[facility]a [facility] Vanita Pernell, M25.562 Pain in left Of C.M.A. M.D. knee Z96.652 Presence of left artificial knee joint M25.462 Effusion, left knee M17.12 Unilateral primary osteoarthritis, left knee M22.2x2 Patellofemoral disorders, left knee Assessments Date Code Description Provider 11/15/2018 Z47.1 Aftercare following joint replacement Vanita Gimenez M.D. surgery 11/15/2018 Z96.652 Presence of left artificial knee joint Vanita Gimenez M.D. 11/15/2018 M25.562 Pain in left knee Vanita Gimenez M.D. 08/16/2018 Z47.1 Aftercare following joint replacement Vanita Gimenez M.D. surgery 08/16/2018 Z96.652 Presence of left artificial knee joint Vanita Gimenez M.D. 08/16/2018 M25.562 Pain in left knee Vanita Gimenez M.D. 07/19/2018 Z47.1 Aftercare following joint replacement Vanita Gimenez M.D. surgery 07/19/2018 Z96.652 Presence of left artificial knee joint Vanita Gimenez M.D. 07/19/2018 M25.562 Pain in left knee Vanita Gimenez M.D. 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 Gary Venegas MD 07/07/2018 Z47.1 Aftercare following joint replacement HEATHER Sykes surgery 07/07/2018 Z96.652 Presence of left artificial knee joint Gary Venegas MD 07/07/2018 Z96.652 Presence of left artificial knee joint Komal Guillory PA-C 07/07/2018 I10 Essential (primary) hypertension Gary Venegas MD 07/07/2018 E11.22 Type 2 diabetes mellitus w diabetic Gary Venegas MD chronic kidney disease 07/07/2018 N18.9 Chronic kidney disease, unspecified Gary Venegas MD 07/06/2018 Z96.652 Presence of left artificial knee joint Gary Venegas MD 07/06/2018 N18.9 Chronic kidney disease, unspecified Gary Venegas MD 07/06/2018 E11.22 Type 2 diabetes mellitus w diabetic Gary Venegas MD chronic kidney disease 07/05/2018 M22.2x2 Patellofemoral disorders, left knee Vanita Gimenez M.D. 07/05/2018 Z96.652 Presence of left artificial knee joint Meg Colon PA-C 07/05/2018 M17.12 Unilateral primary osteoarthritis, Vanita Gimenez M.D. left knee 07/05/2018 I10 Essential (primary) hypertension Meg Colon PA-C 07/05/2018 Z96.652 Presence of left artificial knee joint Vanita Gimenez M.D. 07/05/2018 E11.9 Type 2 diabetes mellitus without Meg Colon PA-C complications 06/24/2018 M25.562 Pain in left knee Vanita Gimenez M.D. 06/24/2018 Z96.652 Presence of left artificial knee joint Vanita Gimenez M.D. 06/24/2018 M25.462 Effusion, left knee Vanita Gimenez M.D. 05/27/2018 M25.562 Pain in left knee Vanita Gimenez M.D. 05/27/2018 Z96.652 Presence of left artificial knee joint Vanita Gimenez M.D. 05/27/2018 M25.462 Effusion, left knee Vanita Gimenez M.D. 05/27/2018 M17.12 Unilateral primary osteoarthritis, Vanita Gimenez M.D. left knee 05/27/2018 M22.2x2 Patellofemoral disorders, left knee Vanita Gimenez M.D. Plan of Treatment 11/15/2018 - Vanita Gimenez M.D.Z47.1 Aftercare following joint replacement surgeryFollow up:Follow up: 2 years with new zmbvqB19.652 Presence of left artificial knee euutrG13.562 Pain in left knee Functional Status Functional Condition Comment Date Status Standard cane is used to ambulate Active Mental Status Description No Information Available Referrals Description No Information Available
[2018-11-30] MEDS ORDERED: Diazepam TAB(*) 5 MG PO ONE (18:30)
[2018-11-30] MEDS ORDERED: Ketorolac *IM* INJ* 60 MG/2 ML VIAL IM ONE (18:30)
--- NOTE | 2018-11-30 18:37 | ED ---
Back Pain - HPI Summary HPI Summary: 68 year old M presenting to [facility] accompanied by niece with a chief complaint of back pain since 11/28/18, per triage, that has been progressively getting worse. Symptoms aggravated by nothing. Symptoms alleviated by nothing. Patient reports that his pain started in the lower left corner of his back a couple of days ago and then started getting worse as it radiated straight across his back and elevated up today, 11/30/18. Patient reports he was sitting in an ab chair" ( chair helps you do crunches and sit ups) when onset occurred and has been using this for the past 1.5-2 weeks ago and that he never experienced this pain before. Patient reports he cannot walk or stand due to pain in back. Patient reports abdominal pain when standing up. Patient reports numbness in legs (left foot is half amputated) which he states is nothing new. Patient denies IV dug use, numbness between penis and butt, urine/poop on self, hematuria, or dysuria. Patient reports taking the oxycodone that he had leftover from when he had a knee replacement and Tylenol earlier today. Hx HTN, hypercholesterolemia. SHx on Achilles heel, stent put in heart. Patient reports he uses walker normally. - History of Current Complaint Chief Complaint: EDBackInjuryPain Stated Complaint: BACK PAIN PER PT Time Seen by Provider: 11/30/18 18:16 Hx Obtained From: Patient Onset/Duration: Lasting Days, Still Present Onset/Duration: Started Days Ago Pain Intensity: 9 Pain Scale Used: 0-10 Numeric Aggravating Symptom(s): Nothing Alleviating Symptom(s): Nothing Associated Signs And Symptoms: Positive: Numbness - in legs; denies between penis and butt, Abdominal Pain, Other - denies hematuria, dysuria. Negative: Bladder Incontinence, Bowel Incontinence - Allergies/Home Medications Allergies/Adverse Reactions: Allergies Allergy/AdvReac Type Severity Reaction Status Date / Time venlafaxine [From Effexor] Allergy Diaphoresis Verified 07/05/18 07:37 PMH/Surg Hx/FS Hx/Imm Hx Endocrine/Hematology History: Reports: Hx Anticoagulant Therapy - coumadin, Hx Diabetes - On insulin Does Finger Sticks ac tid Denies: Hx Thyroid Disease Cardiovascular History: Reports: Hx Angina, Hx Coronary Artery Disease - STENT, Hx Hypercholesterolemia, Hx Hypertension - ON MEDS, Hx Myocardial Infarction, Other Cardiovascular Problems/Disorders - CAD/OBESITY/IDDM II Denies: Hx Pacemaker/ICD, Hx Valvular Heart Disease Respiratory History: Reports: Hx Sleep Apnea - USES AMBIEM NIGHTLY Denies: Hx Asthma, Hx Chronic Obstructive Pulmonary Disease (COPD), Other Respiratory Problems/Disorders GI History: Reports: Hx Gastroesophageal Reflux Disease - ON DAILY MEDS, Other GI Disorders - HISTORY OF PANCREATITIS- GALLBLADDER REMOVED-?2010 History: Reports: Other Problems/Disorders - contrast induce nephropathy Denies: Hx Renal Disease Musculoskeletal History: Reports: Hx Arthritis - BOTH HANDS, SHOULDERS, Hx Gout Denies: Other Musculoskeletal History Sensory History: Reports: Hx Contacts or Glasses - GLASSES Denies: Hx Hearing Aid Opthamlomology History: Reports: Hx Contacts or Glasses - GLASSES Neurological History: Reports: Hx Nerve Disease - neuropathy Denies: Hx Dementia, Hx Seizures, Other Neuro Impairments/Disorders Psychiatric History: Denies: Hx Panic Disorder, Hx Suicide Attempt, Hx Substance Abuse - Surgical History Surgery Procedure, Year, and Place: GALL BLADDER 2010 [facility] CARDIAC STENT PLACEMENT-[facility] 2010. LEFT FOOT PARTIAL AMPUTATION [facility]. RIGHT ACHILLES TENDON REPAIR [facility] R total knee replacement: 2011 [facility]. Rotator cuff repair 02/01/17 BILATERAL SHOULDERS X2. PINS IN BOTH LEGS FOR FRACTURES- AGE 11 Hx Anesthesia Reactions: No - Immunization History Date of Tetanus Vaccine: >10 yrs Date of Influenza Vaccine: Fall 2012 Infectious Disease History: No Infectious Disease History: Reports: Hx Hepatitis - HX OF Dx 01/08 Hep C, TOOK FULL COURES OF MEDS, STATES CLEARED Denies: Hx Clostridium Difficile, Hx Human Immunodeficiency Virus (HIV), Hx Shingles, Hx Tuberculosis, History Other Infectious Disease, Traveled Outside the in Last 30 Days - Family History Known Family History: Positive: Hypertension, Diabetes Negative: Cardiac Disease Family History: No FHx of Malignant Hyperthermia. No FHx of Anesthesia Reaction - Social History Alcohol Use: Weekly Alcohol Amount: 3 times a week Hx Substance Use: Yes Substance Use Type: Reports: Prescribed Substance Use Comment - Amount & Last Used: oxycodone Hx Tobacco Use: Yes Smoking Status (MU): Former Smoker Type: Cigarettes Amount Used/How Often: 1/2 PPD 40 YRS Have You Smoked in the Last Year: No Review of Systems Positive: Abdominal Pain Genitourinary: Other - denies numbness between penis an dbutt Negative: dysuria, hematuria, incontinence Positive: Other - back pain, numbness in legs All Other Systems Reviewed And Are Negative: Yes Physical Exam - Summary Physical Exam Summary: Constitutional: Well-developed, Well-nourished, Alert. (-) Distressed Skin: Warm, Dry HENT: Normocephalic; Atraumatic Eyes: Conjunctiva normal Neck: Musculoskeletal ROM normal neck. (-) JVD, (-) Stridor, (-) Tracheal deviation Cardio: Rhythm regular, rate normal, Heart sounds normal; Intact distal pulses; The pedal pulses are 2+ and symmetric. Radial pulses are 2+ and symmetric. (-) Murmur Pulmonary/Chest wall: Effort normal. (-) Respiratory distress, (-) Wheezes, (-) Rales Abd: Soft, no abdominal tenderness, (-) Distension, (-) Guarding, (-) Rebound Musculoskeletal: limited range of motion in flexion extension of back, point tenderness in the bilateral paraspinal muscle in lumbar spine, no CVA tenderness , patient refusing to walk secondary to pain Lymph: (-) Cervical adenopathy Neuro: Alert, Oriented x3 Psych: Mood and affect Normal Triage Information Reviewed: Yes Vital Signs On Initial Exam: Initial Vitals Temp Pulse Resp BP Pulse Ox 98.9 F 88 16 194/99 95 11/30/18 17:53 11/30/18 17:53 11/30/18 17:53 11/30/18 17:53 11/30/18 17:53 Vital Signs Reviewed: Yes Diagnostics - Vital Signs Vital Signs Temp Pulse Resp BP Pulse Ox 11/30/18 17:53 98.9 F 88 16 194/99 95 - Laboratory Lab Statement: Any lab studies that have been ordered have been reviewed, and results considered in the medical decision making process. - Radiology Lumbar Spine X-Ray Radiology Interpretation Completed By: ED Physician Summary of Radiographic Findings: Per ED physician,. no acute process. Pending official report. Re-Evaluation - Re-Evaluation First Eval Re-Evaluation Time: 19:41 Comment: Patient is feeling much better. Once urine results come back, we will discharge patient. Second Eval Re-Evaluation Time: 20:05 Comment: Patient made aware of hematuria and offered CT scan to evaluate kidney stone but has declined. Back Pain Course/Dx - Course Course Of Treatment: Patient is here with lower back pain likely musculoskeletal in nature. He has no red flag symptoms for back pain outside of had a history of diabetes and being 68 years old. Patient had a negative x- ray for evidence of compression fracture. Patient had a UA which showed a small amount of red blood cells. Patient was offered a CT scan but declined. Patient was given Toradol and volume with vast improvement in his symptoms. Patient was discharged with Robaxin, Motrin, lidocaine patches. - Diagnoses Provider Diagnoses: Lower back pain, Hematuria Discharge ED - Sign-Out/Discharge Documenting (check all that apply): Patient Departure - discharge Patient Received Moderate/Deep Sedation with Procedure: No - Discharge Plan Condition: Stable Disposition: HOME Prescriptions: Ibuprofen TAB* [Motrin TAB* 600 MG] 600 mg PO Q6H PRN #30 tab PRN Reason: Pain - Moderate Ibuprofen TAB* [Motrin TAB* 600 MG] 600 mg PO Q6H PRN #30 tab PRN Reason: Pain - Moderate Lidocaine PATCH 5%* [Lidoderm 5% Patch*] 1 patch TRANSDERM DAILY 5 Days #5 patch Methocarbamol TAB* [Robaxin 500 MG TAB*] 500 mg PO TID PRN #12 tab PRN Reason: Pain - Severe Patient Education Materials: Low Back Strain (ED) Referrals: Fred Hoffman MD [Primary Care Provider] - Additional Instructions: Please have your primary care doctor recheck your urine for blood Please take your medicines as prescribed Please return if you have numbness in your groin or around your anus, difficulty going to the bathroom or going to the bathroom on youself, severe abdominal pain, any other concerning symptoms - Billing Disposition and Condition Condition: STABLE Disposition: Home - Attestation Statements Document Initiated by Geo: Yes Documenting Scribe: Ghada Solorzano Provider For Whom Geo is Documenting (Include Credential): Dr. Louie Rivera MD Scribe Attestation: Ghada Mccain scribed for Dr. Louie Rivera MD on 11/30/18 at 2111. Scribe Documentation Reviewed: Yes Provider Attestation: The documentation as recorded by the Ghada castano accurately reflects the service I personally performed and the decisions made by me, Dr. Louie Rivera MD Status of Scribe Document: Viewed
[2018-11-30 19:58] LABS: Urine Appearance Clear; Urine Bacteria Absent (Absent); Urine Bilirubin Negative (Negative); Urine Blood 1+ (Negative); Urine Color Yellow; Urine Glucose Negative (Negative); Urine Ketones Negative (Negative); Urine Nitrite Negative (Negative); Urine Protein 2+(100 mg/dL) (Negative); Urine Red Blood Cell Trace(0-2/hpf) (Absent); Urine Specific Gravity 1.011 (1.010-1.030); Urine Urobilinogen Negative (Negative); Urine White Blood Cell Trace(0-5/hpf) (Absent)
[2018-11-30 20:17] VITALS: BP 158/77
== END 2018-11-30 20:16 | disposition home or self-care (01) ==
LOC: ED 17:51
DX: M54.5 Low back pain (principal); R31.9 Hematuria, unspecified; M51.36 Other intervertebral disc degeneration, lumbar region; I10 Essential (primary) hypertension; E78.00 Pure hypercholesterolemia, unspecified; E11.9 Type 2 diabetes mellitus without complications; I25.119 Atherosclerotic heart disease of native coronary artery with unspecified angina pectoris; I25.2 Old myocardial infarction; K21.9 Gastro-esophageal reflux disease without esophagitis; Z87.891 Personal history of nicotine dependence; Z79.01 Long term (current) use of anticoagulants; Z79.4 Long term (current) use of insulin; Z79.82 Long term (current) use of aspirin; Z79.899 Other long term (current) drug therapy; Z88.8 Allergy status to other drugs, medicaments and biological substances
CPT/HCPCS: 72110; 81003; 81015; 87086; 96372; 99282; A9270-GY; J1885

== ENCOUNTER → 2019-03-28 06:20 | Day surgery (SDC) | payer MEDICARE ==
[~2019-03-28 06:20] MED LIST changes: +Buffered Lidocaine 1% SYRIN* 1 ML/SYRINGE INTRADERM ONE; +Bupivacaine 0.25% SDV* 30 ML ONE; +Bupivacaine 0.5%* 50 ML MDV VIAL ONE; +Dextrose 50% VIAL 50 ml IV PUSH PRN; +DiMENhydriNATE IV* 50 MG/ML VIAL IV PUSH PRN; +Famotidine IV* 10 MG/ML 2 ML (20 mg) ONE; +Insulin LISPRO* 1 UNITS UNIT SUBCUT ONE; +KETAMINE HCL* 50 MG/ML 10 ML VIAL ONE; +Lidocaine 1% INJ* 10 MG/ML 30 ML SDV ONE; +Metoclopramide IV* 5 MG/ML 2 ML VIAL IV SLOW PU ONE; +Metoclopramide IV* 5 MG/ML 2 ML VIAL ONE; +Midazolam* 1 MG/ML 2 ML VIAL (2 MG) ONE; +Naloxone* 0.4 MG/ML 1 ML VIAL IV PRN; +Ondansetron INJ* 2 MG/ML VIAL ONE; +ceFAZolin 1 GM ADVAN(*) 1 GM ADDV.VIAL IVPB ONE; +ceFAZolin 2 GM PREMIX in ORs 2 GM/50 ML BAG ONE; +fentaNYL* 50 MCG/ML 2 ML VIAL (100 MCG VIAL) IV PRN; +fentaNYL* 50 MCG/ML 2 ML VIAL (100 MCG VIAL) ONE
[2019-03-28 11:22] VITALS: BP 153/69
--- NOTE | 2019-03-28 22:06 | OP ---
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 PRE-OP DIAGNOSIS: Right thumb metacarpophalangeal joint arthritis. POST-OP DIAGNOSIS: Right thumb metacarpophalangeal joint arthritis. OPERATIVE PROCEDURE: Right thumb MP fusion. ESTIMATED BLOOD LOSS: Zero. TOURNIQUET TIME: About 30 minutes. INDICATIONS FOR PROCEDURE: Mariah is a 69-year-old male who has painful arthritis of the right thumb MP joint. He presents for right thumb MP joint fusion. DESCRIPTION OF PROCEDURE: The patient was brought to the operating room, was given a general anesthetic, and placed in a supine position on the operating table with a tourniquet around his right forearm. The skin of his right upper extremity was prepped and draped in the usual sterile fashion. The hand and forearm were exsanguinated and the tourniquet elevated to 250 mmHg. A longitudinal incision was made on the dorsal aspect of the MP joint. We dissected down to the extensor mechanism. The extensor genao was incised on the ulnar aspect of the MP joint and the extensor tendon was retracted radially. The articular cartilage was removed from the proximal phalanx and the metacarpal head and then the metacarpal head was cut to give a fusion angle of about 30 degrees. The wound was copiously irrigated with saline. We then placed two guidewires for the 3.0 cannulated screws in crossing fashion across the MP joint. The screws were measured for 30 and 32 mm and screws were placed in their position, checked on the C-arm in AP and lateral views and found to be satisfactory. The wound was copiously irrigated with saline. The extensor mechanism was repaired with 4-0 nylon suture and the skin edges were reapproximated with 4-0 nylon suture. The wound was dressed with Xeroform, 4x4 , Webril, and a thumb spica splint. The patient tolerated the procedure well and was brought to the recovery room in good condition. [id number]/CPS #: [id number] MTDD
== END | disposition home or self-care (01) ==
LOC: OR 06:20
PROVIDERS: ATTEND Orthopaedic Surgery
DX: M19.041 Primary osteoarthritis, right hand (principal); I10 Essential (primary) hypertension; E11.9 Type 2 diabetes mellitus without complications; Z79.4 Long term (current) use of insulin; I25.10 Atherosclerotic heart disease of native coronary artery without angina pectoris; Z95.5 Presence of coronary angioplasty implant and graft; E78.5 Hyperlipidemia, unspecified; G47.33 Obstructive sleep apnea (adult) (pediatric); Z87.891 Personal history of nicotine dependence; Z86.718 Personal history of other venous thrombosis and embolism; Z79.82 Long term (current) use of aspirin; Z68.43 Body mass index [BMI] 50.0-59.9, adult
CPT/HCPCS: 76000; 88304; 88311; C1713; C1769; J0690; J1815; J2250; J2405; J2765; J3010; J3490

== ENCOUNTER 2019-05-20 06:23 | Day surgery (SDC) | payer MEDICARE ==
--- NOTE | 2019-05-14 17:21 | HP ---
PREOPERATIVE HISTORY AND PHYSICAL: DATE OF ADMISSION/SURGERY: 05/20/19 DATE OF OFFICE VISIT/ENCOUNTER: 04/28/19 ATTENDING SURGEON: Isaura King MD * (DICTATED BY HEATHER AREVALO) PROCEDURE: Metacarpophalangeal joint fusion, left thumb. HISTORY OF PRESENT ILLNESS: This is a 69-year-old male who is complaining of pain in his left thumb ongoing for about a year. He does not recall any specific injury, but just using the hand makes it painful. He back in early March 2019 underwent an metacarpophalangeal joint fusion of the right thumb. He would like to proceed with the same procedure for the left thumb. X-rays show osteoarthritis of the joint. PAST MEDICAL HISTORY: 1. History of hepatitis C. 2. History of DVT, right leg after total knee arthroplasty 15 years ago. 3. Hypertension. 4. Hyperlipidemia. 5. Diabetes. 6. GERD. 7. Coronary artery disease. 8. Gout. 9. Osteoarthritis. 10. Anxiety. PAST SURGICAL HISTORY: 1. Bilateral total knee arthroplasties. 2. Left foot transmetatarsal amputation. 3. Cardiac stent placement. 4. Bilateral rotator cuff repair. 5. Right thumb MP joint fusion. 6. Right Achilles surgery. CURRENT MEDICATIONS: 1. Amlodipine besylate 5 mg daily. 2. Aspirin 81 mg daily. 3. Carvedilol 12.5 mg twice daily. 4. Colchicine 0.6 mg 1 daily. 5. Diclofenac sodium 1%, 2 g 4 times a day p.r.n. pain. 6. Flovent inhaler 1 puff twice a day. 7. Furosemide 40 mg daily. 8. Humalog KwikPen 100 units/mL, 13 units before each meal t.i.d. subcu injection. 9. Hydralazine HCl 25 mg t.i.d. 10. Lantus 46 units in a.m., 46 units in p.m. 11. Losartan potassium 25 mg daily. 12. Neurontin 400 mg t.i.d. to 4 times daily. 13. Omeprazole 20 mg daily. 14. Simvastatin 20 mg daily. 15. Zolpidem tartrate 10 mg q.h.s. ALLERGIES: EFFEXOR causes dizziness. FAMILY MEDICAL HISTORY: Diabetes, hypertension, cancer. SOCIAL HISTORY: The patient is retired. He is a former smoker. He quit approximately 10 years ago. Prior to that, he smoked a pack per day for 30 years. He denies recreational drug use. He drinks alcohol on occasion. REVIEW OF SYSTEMS: Negative for general, cephalic, cardiovascular, respiratory , GI, , other musculoskeletal, integumentary, endocrine, neurologic, and hematologic symptoms. Infectious Disease: Negative for MRSA and HIV. Positive for history of hepatitis C. PHYSICAL EXAMINATION GENERAL: A well-developed, well-nourished 69-year-old male, in no acute distress. VITAL SIGNS: Height 5 feet 8 inches, weight 320 pounds. Pulse rate 98, blood pressure 148/76. HEENT: Normocephalic, atraumatic. Pupils are equal, round, and reactive to light and accommodation. Throat is clear. NECK: Supple. No palpable lymph nodes. PULMONARY: Lungs are clear to auscultation bilaterally. No wheezes, rales, or rhonchi. CARDIOVASCULAR: Regular rate and rhythm. S1, S2. No murmurs, rubs, or gallops. No edema. ABDOMEN: Positive bowel sounds. Soft, nontender. NEUROLOGICAL: Alert and oriented x3. Cranial nerves II through XII are intact. Sensation is intact to light touch. MUSCULOSKELETAL: On exam of his left thumb, he has tenderness to palpation at the MP joint and some obvious deformity with hyperextension and some palpable osteophytes. He also has tenderness at the thumb CMC joint. IMAGING: X-rays, AP, lateral, and oblique of his left thumb show MP joint and CMC joint arthritis. IMPRESSION: As above. PLAN: The patient is scheduled to undergo a metacarpophalangeal joint fusion, left thumb, with Dr. King on 05/20/19. He will return to the office 10 days postop for followup and suture removal. A prescription for Percocet was e- scribed to the patient's pharmacy for postoperative pain management. HEATHER AREVALO [id number]/[facility] #: [id number] MTDD
[~2019-05-20 06:23] MED LIST changes: -Bupivacaine 0.25% SDV* 30 ML ONE; -Bupivacaine 0.5%* 50 ML MDV VIAL ONE; -Dextrose 50% VIAL 50 ml IV PUSH PRN; +DiMENhydriNATE IV* 50 MG/ML VIAL IV PUSH ONE; -DiMENhydriNATE IV* 50 MG/ML VIAL IV PUSH PRN; -Famotidine IV* 10 MG/ML 2 ML (20 mg) ONE; -Insulin LISPRO* 1 UNITS UNIT SUBCUT ONE; -KETAMINE HCL* 50 MG/ML 10 ML VIAL ONE; -Lidocaine 1% INJ* 10 MG/ML 30 ML SDV ONE; -Metoclopramide IV* 5 MG/ML 2 ML VIAL IV SLOW PU ONE; -Metoclopramide IV* 5 MG/ML 2 ML VIAL ONE; -Midazolam* 1 MG/ML 2 ML VIAL (2 MG) ONE; -Naloxone* 0.4 MG/ML 1 ML VIAL IV PRN; -Ondansetron INJ* 2 MG/ML VIAL ONE; -ceFAZolin 1 GM ADVAN(*) 1 GM ADDV.VIAL IVPB ONE; -ceFAZolin 2 GM PREMIX in ORs 2 GM/50 ML BAG ONE; -fentaNYL* 50 MCG/ML 2 ML VIAL (100 MCG VIAL) IV PRN; -fentaNYL* 50 MCG/ML 2 ML VIAL (100 MCG VIAL) ONE
[2019-05-20] MEDS ORDERED: Buffered Lidocaine 1% SYRIN* 1 ML/SYRINGE INTRADERM ONE (06:59)
[2019-05-20] MEDS ORDERED: DiMENhydriNATE IV* 50 MG/ML VIAL ONE (06:59)
[2019-05-20] MEDS ORDERED: Famotidine IV* 10 MG/ML 2 ML (20 mg) ONE (07:00)
[2019-05-20] MEDS ORDERED: ceFAZolin 2 GM in NS PREMIX(*) 2 GM/100 ML BAG IVPB ONE (07:00)
[2019-05-20] MEDS ORDERED: Lidocaine 1% INJ* 10 MG/ML 30 ML SDV ONE (07:02)
[2019-05-20] MEDS ORDERED: oxyCODONE/Acetamin 5/325 MG* TAB PO PRN (07:19)
[2019-05-20] MEDS ORDERED: fentaNYL* 50 MCG/ML 2 ML VIAL (100 MCG VIAL) IV PRN (07:19)
[2019-05-20] MEDS ORDERED: Naloxone* 0.4 MG/ML 1 ML VIAL IV PRN (07:19)
[2019-05-20] MEDS ORDERED: HYDROcodone/ACETAMIN 5-325 MG* 1 TAB PO PRN (07:19)
[2019-05-20] MEDS ORDERED: fentaNYL* 50 MCG/ML 2 ML VIAL (100 MCG VIAL) ONE ×2 (07:43→09:02)
[2019-05-20] MEDS ORDERED: Midazolam* 1 MG/ML 5 ML VIAL (5 MG) ONE (07:44)
[2019-05-20] MEDS ORDERED: Propofol* 10 MG/ML 20 ML BTL ONE (07:44)
[2019-05-20] MEDS ORDERED: Lidocaine 2% PF * 5 ML VIAL ONE (07:44)
[2019-05-20] MEDS ORDERED: Dextrose 50% Syringe 50 ML* 25 GM/50 ML SYRINGE IV PUSH PRN (08:01)
[2019-05-20] MEDS ORDERED: Insulin LISPRO* 1 UNITS UNIT SUBCUT ONE ×2 (08:01→08:03)
[2019-05-20] MEDS ORDERED: Phenylephrine 40 MCG/ML SYRINGE ONE (09:16)
[2019-05-20] MEDS ORDERED: Ondansetron INJ* 2 MG/ML VIAL ONE (09:17)
[2019-05-20] MEDS ORDERED: Bupivacaine 0.25% SDV PF* 10 ML VIAL INJ ONE (09:27)
[2019-05-20] MEDS ORDERED: Bupivacaine 0.5% SDV PF* 30ML VIAL ONE (09:28)
[2019-05-20] MEDS ORDERED: HYDROcodone/ACETAMIN 5-325 MG* 1 TAB ONE (10:39)
[2019-05-20 11:15] VITALS: BP 153/73
--- NOTE | 2019-05-20 22:58 | OP ---
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 PRE-OP DIAGNOSIS: Metacarpophalangeal joint arthritis of the left thumb. POST-OP DIAGNOSIS: Metacarpophalangeal joint arthritis of the left thumb. OPERATIVE PROCEDURE: Left thumb, MP joint fusion. INDICATIONS FOR PROCEDURE: Mariah is a 69-year-old man who has painful arthritis at the MP joint of his left thumb. He has had a right thumb MP fusion and done very well with that, presents for the same on the left. ESTIMATED BLOOD LOSS: Zero. TOURNIQUET TIME: About 35 minutes. DESCRIPTION OF PROCEDURE: The patient was brought to the operating room and was given a general anesthetic and placed in the supine position on the operating table with a tourniquet around his left forearm. The skin of his left upper extremity was prepped and draped in the usual sterile fashion. The upper extremity was exsanguinated and the tourniquet elevated to 250 mmHg. A longitudinal incision was made over the MP joint of the thumb dorsally and we dissected down to the extensor tendon. Extensor genao was incised and the tendon was retracted radially. The MP joint capsule was incised longitudinally and then the cartilage was removed from the base of the proximal phalanx and from the head of the metacarpal. A saw was used to place about a 30 angle on the metacarpal and then 2 bones were secured together with two 3.0 cannulated screws. The position of the hardware and fusion fragments were checked on the C -arm in the AP and lateral views and found to be satisfactory. The wound was copiously irrigated with saline. The joint capsule was closed over the screws with 4-0 nylon suture and then the extensor genao was repaired with 4-0 nylon suture. The skin edges were reapproximated with 4-0 nylon suture. The wound was dressed with Xeroform, 4x4, Webril, and a thumb spica splint. The patient tolerated the procedure well and was brought to the recovery room in good condition. [id number]/CPS #: [id number] [facility]ENTER[facility]ansel
== END 2019-05-20 11:34 | disposition home or self-care (01) ==
LOC: OR 06:23
PROVIDERS: ATTEND Orthopaedic Surgery
DX: M19.042 Primary osteoarthritis, left hand (principal); I10 Essential (primary) hypertension; E78.5 Hyperlipidemia, unspecified; E11.9 Type 2 diabetes mellitus without complications; Z79.4 Long term (current) use of insulin; Z79.84 Long term (current) use of oral hypoglycemic drugs; Z87.891 Personal history of nicotine dependence; K21.9 Gastro-esophageal reflux disease without esophagitis; I25.10 Atherosclerotic heart disease of native coronary artery without angina pectoris; M19.90 Unspecified osteoarthritis, unspecified site; Z86.718 Personal history of other venous thrombosis and embolism
CPT/HCPCS: 76000; C1713; C1769; J0690; J1240; J1815; J2250; J2405; J2704; J3010; J3490

== ENCOUNTER 2021-09-24 19:47 | Observation (INO) ==
[2021-09-24 20:38] LABS: ABS Eosinophils 0.4 10^3/ul (0-0.6); ABS Monocytes 0.7 10^3/ul (0-0.8); ABS Neutrophils 4.2 10^3/ul (1.5-7.7); Hematocrit 34 % (42-52); Hemoglobin 10.7 g/dL (14.0-18.0); Lymphocyte % 27.9 %; Mean Corpuscular HGB Conc 31 g/dL (31-36); Mean Corpuscular Hemoglobin 24 pg (27-31); Mean Corpuscular Volume 78 fL (80-94); Mean Platelet Volume 9.6 fL (7.4-10.4); Nucleated Red Blood Cells % 0.1; Platelet Count 113 10^3/uL (150-450); Red Blood Count 4.42 10^6 /uL (4.18-5.48); Red Cell Distribution Width 16 % (10-15); White Blood Count 7.3 10^3/uL (3.5-10.8)
[2021-09-24 20:50] LABS: Activated Partial Thrombo Time 27.9 seconds (26.0-38.0); INR 1.02 (0.86-1.15)
[2021-09-24 21:08] LABS: Albumin 3.9 g/dL (3.2-5.2); Albumin/Globulin Ratio 1.6 (1-3); Calcium 8.5 mg/dL (8.6-10.3); Globulin 2.5 g/dL (2-4); Magnesium 1.5 mg/dL (1.9-2.7); Potassium 4.2 mmol/L (3.5-5.0); Total Bilirubin 0.3 mg/dL (0.2-1.0); Total Protein 6.4 g/dL (6.4-8.9); eGFR CKD-EPI 24.1 (>60)
[2021-09-24] MEDS ORDERED: Nitro 2% OINT (Nitroglycerin) 1 INCH/PAK TOPICAL ONE (21:19)
[2021-09-24 22:09] LABS: High Sensitivity Troponin 1 Hr 14 pg/mL (<20)
[2021-09-24] MEDS ORDERED: Ondansetron 4 mg VIAL 2 MG/ML 2 ml VIAL IV PRN (23:34)
[2021-09-24] MEDS ORDERED: Dextrose 50% Syringe 50 ml 25 GM/50 ML SYRINGE IV PUSH PRN (23:46)
[2021-09-25] MEDS ORDERED: Enoxaparin 40 MG/0.4 ML SYR SUBCUT SCH
[2021-09-25] MEDS ORDERED: Magnesium Sulfate 2 gm BAG 2 GM/50 ML BAG IVPB ONE (00:21)
[2021-09-25] MEDS: Albuterol HFA INHALER 8 gm MDI INH PRN ×2 (02:05→10:36)
[2021-09-25 04:58] LABS: ABS Basophils 0.1 10^3/ul (0-0.2); ABS Eosinophils 0.4 10^3/ul (0-0.6); ABS Lymphocytes 2.2 10^3/ul (1.0-4.8); ABS Monocytes 0.8 10^3/ul (0-0.8); ABS Neutrophils 3.5 10^3/ul (1.5-7.7); Eosinophil % 5.7 %; Hematocrit 31 % (42-52); Hemoglobin 9.7 g/dL (14.0-18.0); Lymphocyte % 32.1 %; Mean Corpuscular HGB Conc 31 g/dL (31-36); Mean Corpuscular Hemoglobin 24 pg (27-31); Mean Corpuscular Volume 78 fL (80-94); Mean Platelet Volume 10.3 fL (7.4-10.4); Platelet Count 102 10^3/uL (150-450); Red Blood Count 4.03 10^6 /uL (4.18-5.48); Red Cell Distribution Width 16 % (10-15); White Blood Count 6.9 10^3/uL (3.5-10.8)
[2021-09-25 05:20] LABS: Calcium 8.2 mg/dL (8.6-10.3); HDL Cholesterol 18.7 mg/dL; Potassium 4.1 mmol/L (3.5-5.0); eGFR CKD-EPI 22.4 (>60)
[2021-09-25] MEDS ORDERED: NS 0.9% 250 ml 250 ML IV SCH (08:00)
[2021-09-25] MEDS ORDERED: Insulin GLARGINE 100 un/ml 10 ml VIAL SUBCUT SCH ×2 (09:00→21:00)
[2021-09-25] MEDS: Furosemide 40 mg/4 ml IV VIAL IV SCH (15:39)
[2021-09-25] MEDS: CMCS:Simvastatin 20 mg TAB (NF) PO SCH (20:58)
[2021-09-25] MEDS: Aspirin EC 81 mg TAB.EC (enteric coated) PO SCH (20:58)
[2021-09-25] MEDS: Insulin GLARGINE 100 un/ml 10 ml VIAL SUBCUT SCH (20:59)
[2021-09-25] MEDS: Enoxaparin 40 MG/0.4 ML SYR SUBCUT SCH (20:59)
[2021-09-25] MEDS ORDERED: Enoxaparin 30 MG/0.3 ML SYR SUBCUT SCH (21:00)
[2021-09-26 08:48] LABS: Blood Urea Nitrogen 55 mg/dL (6-24); CO2 Carbon Dioxide 26 mmol/L (22-32); Calcium 8.8 mg/dL (8.6-10.3); Chloride 103 mmol/L (101-111); Glucose 239 mg/dL (70-100); Sodium 136 mmol/L (135-145); eGFR CKD-EPI 26.7 (>60)
[2021-09-26] MEDS: Insulin GLARGINE 100 un/ml 10 ml VIAL SUBCUT SCH ×2 (09:34→20:54)
[2021-09-26] MEDS: Furosemide 40 mg/4 ml IV VIAL IV SCH ×2 (09:35→15:26)
[2021-09-26 10:43] LABS: Anion Gap 7 mmol/L (2-11)
[2021-09-26] MEDS: Aspirin EC 81 mg TAB.EC (enteric coated) PO SCH (20:54)
[2021-09-26] MEDS: Enoxaparin 40 MG/0.4 ML SYR SUBCUT SCH (20:54)
[2021-09-26] MEDS: CMCS:Simvastatin 20 mg TAB (NF) PO SCH (21:03)
[2021-09-27 06:00] LABS: ABS Basophils 0.1 10^3/ul (0-0.2); ABS Eosinophils 0.4 10^3/ul (0-0.6); ABS Lymphocytes 1.9 10^3/ul (1.0-4.8); ABS Monocytes 0.7 10^3/ul (0-0.8); ABS Neutrophils 3.3 10^3/ul (1.5-7.7); Eosinophil % 5.8 %; Hematocrit 32 % (42-52); Hemoglobin 10.4 g/dL (14.0-18.0); Lymphocyte % 30.4 %; Mean Corpuscular HGB Conc 32 g/dL (31-36); Mean Corpuscular Hemoglobin 25 pg (27-31); Mean Corpuscular Volume 79 fL (80-94); Mean Platelet Volume 10.3 fL (7.4-10.4); Nucleated Red Blood Cells % 0.2; Platelet Count 112 10^3/uL (150-450); Red Cell Distribution Width 16 % (10-15); White Blood Count 6.3 10^3/uL (3.5-10.8)
[2021-09-27 06:34] LABS: Calcium 8.7 mg/dL (8.6-10.3); Magnesium 1.9 mg/dL (1.9-2.7); eGFR CKD-EPI 24.3 (>60)
[2021-09-27] MEDS ORDERED: Perflutren Lipid Microsphere 3 ML VIAL ONE (09:53)
[2021-09-27] MEDS: Insulin GLARGINE 100 un/ml 10 ml VIAL SUBCUT SCH ×2 (11:43→21:56)
[2021-09-27] MEDS: Furosemide 40 mg/4 ml IV VIAL IV SCH ×2 (11:46→16:42)
[2021-09-27] MEDS: Aspirin EC 81 mg TAB.EC (enteric coated) PO SCH (21:55)
[2021-09-27] MEDS: CMCS:Simvastatin 20 mg TAB (NF) PO SCH (21:55)
[2021-09-27] MEDS: Enoxaparin 40 MG/0.4 ML SYR SUBCUT SCH (21:56)
[2021-09-28 06:40] LABS: Calcium 8.5 mg/dL (8.6-10.3); Magnesium 1.8 mg/dL (1.9-2.7); Potassium 4.1 mmol/L (3.5-5.0)
[2021-09-28 06:46] LABS: eGFR CKD-EPI 20.4 (>60)
[2021-09-28] MEDS ORDERED: Regadenoson 0.4 MG/5 ML SYRINGE ONE (07:48)
[2021-09-28] MEDS: Insulin GLARGINE 100 un/ml 10 ml VIAL SUBCUT SCH ×2 (09:39→20:49)
[2021-09-28] MEDS: Aspirin EC 81 mg TAB.EC (enteric coated) PO SCH (20:48)
[2021-09-28] MEDS: CMCS:Simvastatin 20 mg TAB (NF) PO SCH (20:49)
[2021-09-28] MEDS ORDERED: Enoxaparin 30 MG/0.3 ML SYR SUBCUT SCH (21:00)
[2021-09-29 06:39] LABS: Calcium 8.6 mg/dL (8.6-10.3); Magnesium 1.9 mg/dL (1.9-2.7); Potassium 4.3 mmol/L (3.5-5.0); eGFR CKD-EPI 24.8 (>60)
[2021-09-29] MEDS: Insulin GLARGINE 100 un/ml 10 ml VIAL SUBCUT SCH (08:07)
[2021-09-29 08:38] VITALS: BP 157/85
== END 2021-09-29 10:50 | disposition home or self-care (01) ==
LOC: EDHOLD 19:47 → ED 19:47 → SUATTDRO 23:34 → MEDTELE 09-25 00:15
PROVIDERS: ADMIT Student in an Organized Health Care Education/Training Program; ATTEND Internal Medicine